=== PATIENT | male | born 1990 | race Two or more races ===

== ENCOUNTER 2020-02-05 11:32 | Outpatient (REF) | payer OTHER, SELFPAY | END 2020-02-05 11:33 | disposition home or self-care (01) | LOC: HO.LAB 11:32 | PROVIDERS: Visit Provider Internal Medicine | DX: Z20.828 Contact with and (suspected) exposure to other viral communicable diseases (principal) | CPT/HCPCS: 87635 ==

== ENCOUNTER 2020-03-20 11:20 | Outpatient (REF) | payer OTHER, SELFPAY | END 2020-03-20 11:21 | disposition home or self-care (01) | LOC: HO.LAB 11:20 | PROVIDERS: Visit Provider Internal Medicine | DX: Z20.828 Contact with and (suspected) exposure to other viral communicable diseases (principal) | CPT/HCPCS: C9803; U0003 ==

== ENCOUNTER 2020-04-19 11:29 | Emergency (ER) | payer OTHER, SELFPAY ==
[2020-04-19 11:33] VITALS: BP 144/89; PULSE 81; RESP 18; TEMP 37.1; O2SAT 96; BMI 35.5
--- NOTE | 2020-04-19 12:46 | ED.GENADULT ---
HPI - General Adult General Chief complaint: Upper Respiratory Symptoms Stated complaint: sore throat Time Seen by Provider: 04/19/20 12:30 Source: patient Mode of arrival: ambulatory Limitations: no limitations History of Present Illness HPI narrative: Patient comes emergency room complaining of sore throat and difficulty swallowing. Patient states it started today. Patient denies shortness of breath, no headaches, no other upper respiratory symptoms. MD complaint: Sore throat Related Data Allergies Allergy/AdvReac Type Severity Reaction Status Date / Time Penicillins Allergy Severe HIVES Unverified 12/26/19 16:52 amoxicillin [AMOXICILLIN] Allergy Unknown ANAPHYLAXIS Unverified 12/26/19 16:52 Review of Systems Review of Systems: Constitutional : No Weight loss, No Fever, No Chills, No Night Sweats, No Fatigue, No Malaise ENT/Mouth : No Hearing loss, No Ear Pain, No Nasal Congestion, No Sinus Pain, No Hoarseness, complaining of sore throat and mild difficulty swallowing No Rhinorrhea Eyes: No Eye Pain, No Swelling, No Redness, No Foreign Body, No Discharge, No Vision Changes Cardiovascular : No Chest Pain, No SOB, No Dyspnea on Exertion, No Orthopnea, No Edema, No Palpitations Respiratory : No Cough, No Sputum, No Wheezing, No Smoke Exposure, No Dyspnea Gastrointestinal : No Nausea, No Vomiting, No Diarrhea, No Constipation, No abdominal Pain, No Hematochezia, No Melena Genitourinary : no irregular bleeding, No Dysuria, No Urinary Frequency, No Hematuria, No Urinary Incontinence, No Urgency, No Flank Pain, No Urinary Flow Changes, No Hesitancy Musculoskeletal : No joint pain, No Myalgias, No Joint Swelling Skin : No Skin Lesions, No rash Neuro : No Weakness, No Numbness, No Paresthesias, No Loss of Consciousness, No Dizziness, No Headache Psych : No Anxiety/Panic, No Depression, No SI/HI/AH/VH, No Social Issues, Heme/Lymph: No Bruising, No Bleeding,No Lymphadenopathy Endocrine : No Polyuria, No Polydipsia, No Temperature Intolerance [facility] Past Medical History Medical History No known health problems Social History Social History Advance Directives: No Advance Directives Information Provided: No Physical Exam Vital Signs: Vital Signs: Last Vital Signs Temp 97.4 F 04/19/20 14:00 Pulse 85 04/19/20 14:00 Resp 22 H 04/19/20 14:00 BP 144/68 H 04/19/20 14:00 Pulse Ox 95 04/19/20 14:00 Body Mass Index 35.5 Appearance: Alert. Oriented X3. No acute distress. Eyes: Pupils equal, round and reactive to light. ENT: Pharynx erythematous, uvula is mildly erythematous and mildly swollen, tonsils are also erythematous, but no exudates. Patient controlling his secretions, able to swallow, no respiratory distress, no tripodding Neck: Normal inspection. Neck supple. No lymph nodes noted. No crepitus CVS: Normal heart rate and rhythm. Pulses normal. Normal S1 and S2 Respiratory: No respiratory distress. Breath sounds normal. No Wheezing. No rales Abdomen: Soft and nontender. No rigidity. No distention. good BS x4 Skin: Skin warm and dry. Normal skin color. Normal skin turgor. Extremities: No lower extremity edema. No lower extremity edema. No Lacerations. No Rash Neuro: Oriented X 3. No motor deficit. No sensory deficit. Moving all extermities. No slurred speech. Course Course Course Narrative: Patient states that he is known to be allergic to penicillins, denies using any antibiotics lately. At this time, given that the patient's uvula is swollen, we will test him for strep and COVID, however he will be treated as an allergic reaction, patient will be constantly re-evaluated. Patient is stable, no shortness of breath, no wheezing, no rash that may indicate anaphylaxis I discussed the labs and imaging with the patient, it is unlikely the patient has epiglottitis. Patient is stable to speak in full sentences, controlling his own secretions, respiratory rate within normal limits, at this time he feels that his throat feels better, less irritated. Soft tissue neck x-ray did not appreciate thickening of the epiglottis. Rapid strep is negative, COVID-19 is negative. I discussed with the patient that the cultures are pending, if they are positive, he will receive a phone call to inform him and antibiotics would be sent to his pharmacy. At this time, antibiotics are not indicated Medical Decision Making Lab Data Result diagrams: 04/19/20 13:03 04/19/20 15:09 Labs: Lab Results 04/19/20 04/19/20 04/19/20 Range/Units 12:57 13:03 13:03 WBC 7.1 (4.8-10.8) X10*3/uL RBC 5.30 (4.60-5.80) X10*6/uL Hgb 16.1 (14.0-18.0) g/dl Hct 48.3 (42-52) % MCV 91.1 (80-98) fL MCH 30.4 (27.0-33.0) pg MCHC 33.3 (31.0-36.0) g/dl RDW 12.4 (11.0-16.0) % Plt Count 241 (160-400) X10*3/uL MPV 11.0 (9.4-12.4) fL Immature Gran % (Auto) 0.7 H (0.0-0.4) % Neut % (Auto) 55.2 (45-73) % Lymph % (Auto) 33.4 (20-40) % [place] % (Auto) 6.9 (2-11) % Eos % (Auto) 3.2 (0-4) % Baso % (Auto) 0.6 (0-2) % Lymph # (Auto) 2.4 (1.2-4.9) X10*3/uL [place] # (Auto) 0.5 (0.1-1.2) X10*3/uL Eos # (Auto) 0.2 (0.0-0.4) X10*3/uL Baso # (Auto) 0.0 (0.0-0.2) X10*3/uL Abs Immat Gran (auto) 0.05 H (0.00-0.03) X10*3/uL Absolute Neuts (auto) 3.9 (2.0-8.3) X10*3/uL Absolute Nucleated RBC 0.000 (0.0-0.012) X10*3/uL Nucleated RBC % (auto) 0.0 (0.0-0.2) /100WBC Sodium Cancelled Potassium Cancelled Chloride Cancelled Carbon Dioxide Cancelled Anion Gap Cancelled BUN Cancelled Creatinine Cancelled Estim Creat Clear Calc Cancelled Estimated GFR Cancelled Random Glucose Cancelled Calcium Cancelled Coronavirus (PCR) NEGATIVE (Negative) Influenza Type A (PCR) NEGATIVE (Negative) Influenza Type B (PCR) NEGATIVE (Negative) RSV RNA Qual (PCR) NEGATIVE (Negative) 04/19/20 04/19/20 Range/Units 14:37 15:09 WBC (4.8-10.8) X10*3/uL RBC (4.60-5.80) X10*6/uL Hgb (14.0-18.0) g/dl Hct (42-52) % MCV (80-98) fL MCH (27.0-33.0) pg MCHC (31.0-36.0) g/dl RDW (11.0-16.0) % Plt Count (160-400) X10*3/uL MPV (9.4-12.4) fL Immature Gran % (Auto) (0.0-0.4) % Neut % (Auto) (45-73) % Lymph % (Auto) (20-40) % [place] % (Auto) (2-11) % Eos % (Auto) (0-4) % Baso % (Auto) (0-2) % Lymph # (Auto) (1.2-4.9) X10*3/uL [place] # (Auto) (0.1-1.2) X10*3/uL Eos # (Auto) (0.0-0.4) X10*3/uL Baso # (Auto) (0.0-0.2) X10*3/uL Abs Immat Gran (auto) (0.00-0.03) X10*3/uL Absolute Neuts (auto) (2.0-8.3) X10*3/uL Absolute Nucleated RBC (0.0-0.012) X10*3/uL Nucleated RBC % (auto) (0.0-0.2) /100WBC Sodium Cancelled 141 Potassium Cancelled 4.8 Chloride Cancelled 106 Carbon Dioxide Cancelled 26 Anion Gap Cancelled 14 BUN Cancelled 8 L Creatinine Cancelled 1.03 Estim Creat Clear Calc Cancelled 115.9 Estimated GFR Cancelled > 60 Random Glucose Cancelled 97 Calcium Cancelled 8.9 Coronavirus (PCR) (Negative) Influenza Type A (PCR) (Negative) Influenza Type B (PCR) (Negative) RSV RNA Qual (PCR) (Negative) Imaging Data Neck soft tissue: Radiologist's impression: The lateral soft tissue neck is limited by the head position in phase of respiration. There is soft tissue prominence at the base of the tongue which may reflect enlargement of the palatine tonsils. The epiglottis is not well evaluated on this study but no obvious epiglottic enlargement is seen. 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 XR/XR soft tissue neck IMPRESSION: Limited exam. Possible enlargement of the palatine tonsils. The epiglottis is not appreciably thickened. Discharge Plan Discharge Clinical Impression: Acute viral pharyngitis Patient Disposition: Home, Self-Care Instructions: Pharyngitis (ED) Additional Instructions: Please follow-up with your primary care physician tomorrow. If you have any worsening or new symptoms, please return to the emergency room or call 911
[2020-04-19 13:10] LABS: MANUAL DIFF FLAG NO
[2020-04-19 13:20] LABS: Basophils Percent Auto 0.6 % (0-2); Eosinophils Absolute Auto 0.2 X10*3/uL (0.0-0.4); Eosinophils Percent Auto 3.2 % (0-4); Hematocrit 48.3 % (42-52); Hemoglobin 16.1 g/dl (14.0-18.0); Imm Gran Abs Auto 0.05 X10*3/uL (0.00-0.03); Imm Gran Pct Auto 0.7 % (0.0-0.4); Lymphocytes Absolute Auto 2.4 X10*3/uL (1.2-4.9); Lymphocytes Percent Auto 33.4 % (20-40); Mean Corpuscular HGB Conc 33.3 g/dl (31.0-36.0); Mean Corpuscular Hemoglobin 30.4 pg (27.0-33.0); Mean Corpuscular Volume 91.1 fL (80-98); Monocytes Absolute Auto 0.5 X10*3/uL (0.1-1.2); Monocytes Percent Auto 6.9 % (2-11); Neutrophils Absolute Auto 3.9 X10*3/uL (2.0-8.3); Neutrophils Percent Auto 55.2 % (45-73); Platelet Count 241 X10*3/uL (160-400); Red Cell Distribution Width 12.4 % (11.0-16.0); White Blood Count 7.1 X10*3/uL (4.8-10.8)
[2020-04-19] MEDS: diphenhydrAMINE HCL 50 MG/ML VIAL IVPUSH (13:21)
[2020-04-19] MEDS: Famotidine/PF 20 MG/2 ML VIAL IVPUSH (13:21)
[2020-04-19] MEDS: methylPREDNISolone Sod Succ/PF 125 MG/2 ML VIAL IVPUSH (13:21)
--- NOTE | 2020-04-19 13:45 | XR_ITS ---
EXAMINATION: XR SOFT TISSUE NECK CLINICAL INDICATION: Low suspicion for epiglottitis COMPARISON: Ct neck 11/22/2014 TECHNIQUE: Lateral soft tissue neck obtained. FINDINGS: The lateral soft tissue neck is limited by the head position in phase of respiration. There is soft tissue prominence at the base of the tongue which may reflect enlargement of the palatine tonsils. The epiglottis is not well evaluated on this study but no obvious epiglottic enlargement is seen. 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 XR/XR soft tissue neck IMPRESSION: Limited exam. Possible enlargement of the palatine tonsils. The epiglottis is not appreciably thickened.
[2020-04-19 14:00] VITALS: BP 144/68; PULSE 85; RESP 22; TEMP 36.3; O2SAT 95
[2020-04-19 14:09] LABS: Influenza A PCR NEGATIVE (Negative); Influenza B PCR NEGATIVE (Negative); Resp Syncy Virus RNA Qual PCR NEGATIVE (Negative); SARS COV2 PCR INHOUSE NEGATIVE (Negative)
[2020-04-19 15:38] LABS: Anion Gap 14 (12-20); Blood Urea Nitrogen 8 mg/dL (9-16); Calcium 8.9 mg/dL (8.4-10.2); Carbon Dioxide 26 mmol/L (22-29); Chloride 106 mmol/L (96-108); Creatinine Clr Calc Pharmacy 115.9; Estimated Glomerular Filt Rate > 60; Glucose Random 97 mg/dL (60-115); Potassium 4.8 mmol/l (3.3-5.1); Sodium 141 mmol/L (135-145)
== END 2020-04-19 17:33 | disposition home or self-care (01) ==
PROVIDERS: Emergency Provider Emergency Medicine
DX: J02.8 Acute pharyngitis due to other specified organisms (principal); Z20.828 Contact with and (suspected) exposure to other viral communicable diseases
CPT/HCPCS: 0241U; 36415; 70360; 80048; 85025; 87071; 87880; 96374; 96375; 99284; J1200; J2930

== ENCOUNTER 2020-07-20 13:41 | Outpatient (REF) | payer OTHER, SELFPAY ==
[2020-07-20 14:54] LABS: COVID-19 Test Positive (Negative); IDNOW Serial# 55D5AD1C
== END 2020-07-20 13:42 | disposition home or self-care (01) ==
LOC: HO.LAB 13:41
PROVIDERS: Visit Provider Internal Medicine
DX: Z20.822 Contact with and (suspected) exposure to COVID-19 (principal)
CPT/HCPCS: 36415; 87635; C9803

== ENCOUNTER 2021-02-14 16:07 | Emergency (ER) | payer OTHER, SELFPAY ==
[2021-02-14 16:17] VITALS: BP 177/85; PULSE 106; RESP 16; TEMP 37.5; O2SAT 97
[2021-02-14 16:38] LABS: IDNOW Serial# 9DD0AD1C; Strep A Nucleic Acid Positive (Negative)
--- NOTE | 2021-02-14 16:44 | ED_ITS ---
HPI - URI/Sore Throat General Chief Complaint: Upper Respiratory Symptoms Stated Complaint: Sore throat/body aches Time Seen by Provider: 02/14/21 16:36 Source: patient Mode of arrival: ambulatory Limitations: no limitations History of Present Illness HPI Narrative: 30-year-old male with past medical history of COVID presents to ED for body aches, bilateral ear pain, headache, and sore throat since yesterday. Patient denies any chest pain, shortness of breath, or coughing. Patient states not vaccinated against COVID. Patient states no one else at home or work have similar symptoms. Related Data Previous Rx's Medication Instructions Recorded cephalexin 500 mg capsule 500 mg PO QID 7 Days #28 cap 02/14/21 naproxen 500 mg tablet 500 mg PO BID PRN #20 tab 02/14/21 Allergies Allergy/AdvReac Type Severity Reaction Status Date / Time Penicillins Allergy Severe HIVES Verified 02/14/21 16:16 amoxicillin [AMOXICILLIN] Allergy Unknown ANAPHYLAXIS Verified 02/14/21 16:16 Review of Systems Review of Systems: Yes all other systems are reviewed and are negative Constitutional: Constitutional: Reports as per HPI, Reports no additional constitutional complaints, Reports body ache(s), Reports chills and Reports headache(s) Eyes: Eyes: Reports as per HPI and Reports no additional eye complaints ENT: Reports system reviewed and no additional complaints, except as documented, Reports as per HPI, Reports headache(s) and Reports sore throat Cardiovascular: Cardiovascular: Reports as per HPI and Reports no additional cardiovascular complaints Respiratory: Respiratory: Reports as per HPI and Reports no additional respiratory complaints Gastrointestinal: Gastrointestinal: Reports as per HPI and Reports no additional gastrointestinal complaints Genitourinary: Genitourinary: Reports no additional male genitourinary complaints and Reports as per HPI Musculoskeletal: Musculoskeletal: Reports no additional musculoskeletal complaints and Reports as per HPI Neurologic: Reports system reviewed and no additional complaints, except as documented, Reports as per HPI and Reports headache(s) Psychiatric: Psychiatric: Reports no additional psychiatric complaints and Reports as per HPI PMF Past Medical History Medical History No known health problems Social History Social History Alcohol intake: unknown Advance Directives: No Advance Directives Information Provided: No Physical Exam Vital Signs: Vital Signs: Last Vital Signs Temp 99.5 F 02/14/21 16:17 Pulse 106 H 02/14/21 16:17 Resp 16 02/14/21 16:17 BP 177/85 H 02/14/21 16:17 Pulse Ox 97 02/14/21 16:17 Body Mass Index 0.4 Const: General: cooperative, healthy appearing, comfortable, no acute distress, well developed, alert, awake and Physically active Orientati on/consciousness: patient oriented x3 HENMT: Head: Yes normal to inspection, Yes No palpable skull fracture present, Yes normocephalic, Yes atraumatic, No abrasion, No Acrocyanosis present, No Grant's sign, No contusion, No cranial bruits, No hematoma, No laceration, No occipital foramen tenderness, No palpable skull fracture, No raccoon eyes, No scalp lesion, No scalp tenderness, No Temporal artery tenderness present and No periorbital ecchymosis Ears: hearing grossly normal bilaterally and TM abnorm al (Right and left TM) erythematous Throat: Yes abnormal tonsil (white patchy on left tonsils) Eyes: General: appearance normal, both eyes and all related structures Neck: Neck: Yes normal visual inspection, Yes full ROM, Yes no lymphadenopathy, Yes no meningeal signs, Yes trachea midline, Yes supple, No anterior neck swelling and No tender Chest: Chest palpation & inspection: normal inspection of the chest and normal palpation of entire chest wall Resp: Effort & Inspection: normal respiratory effort and able to speak in complete sentences Auscultation: clear to auscultation bilaterally Cardio: Jugular venous distension: no JVD Heart sounds: S1 normal heart sound present and S2 normal heart sound present GI: Inspection: Yes normal to inspection and No abdominal wall ecchymosis Palpation (GI): Soft to palpation, not firm, nontender, no guarding and not rigid : General: No CVA tenderness and Yes no CVA tenderness Back/Spine/Pelvis: Back: no CVA tenderness, No CVA tenderness and No back tenderness Skin: General skin exam: no rashes or lesions noted and elasticity normal Neuro: General: patient oriented x3, gait normal, no meningeal signs and CN's II-XI intact bilaterally Cranial nerves: Yes CN's II-XII intact bilaterally Extrem: General: Yes normal to inspection and Yes full ROM Psych: Appearance: grossly normal, well kempt and not disheveled Course Course Course Narrative: COVID and strep ordered Reevaluation(s) Reevaluation #1: Strep test positive waiting for COVID swab Time: 17:05 MDM - URI/Sore Throat MDM Narrative Medical decision making narrative: Strep throat Lab Data Labs: Lab Results 02/14/21 02/14/21 Range/Units 16:25 16:25 COVID-19 (ELIDA) Negative (Negative) COVID-19 Clin Com See Note S. pyogenes GrpA LEENA Positive A (Negative) Discharge Plan Discharge Clinical Impression: Acute streptococcal tonsillitis Patient Disposition: Home, Self-Care Instructions: Strep Throat (ED) Additional Instructions: You came back positive for strep. You will be discharged with antibiotics. Return to the ED worsening pain, neck swelling, inability tolerate solid food/liquid, drooling, change in voice, shortness of breath, chest pain, or any other concerning symptoms. Prescriptions: New cephalexin 500 mg capsule 500 mg PO QID 7 Days Qty: 28 RF: 0 naproxen 500 mg tablet 500 mg PO BID PRN (Reason: pain) Qty: 20 RF: 0 Stand Alone Forms: Work/School Release Interventions: ED Discharge Assessment Last Done: 02/14/21 17:47 Discharge Date/Time: 02/14/21 18:02 Print Language: Sinhala
[2021-02-14 17:03] LABS: COVID-19 Test Negative (Negative)
== END 2021-02-14 18:02 | disposition home or self-care (01) ==
PROVIDERS: Emergency Provider Internal Medicine
DX: J03.00 Acute streptococcal tonsillitis, unspecified (principal); M79.10 Myalgia, unspecified site; Z20.822 Contact with and (suspected) exposure to COVID-19
CPT/HCPCS: 36415; 87635; 87651; 99283

== ENCOUNTER 2021-04-20 08:44 | Outpatient (REF) | payer OTHER, SELFPAY ==
[2021-04-20 09:37] LABS: Binax Now Covid-19 Ag Positive (Negative)
[2021-04-20 09:38] LABS: Binax Internal Control QC Valid
== END 2021-04-20 08:45 | disposition home or self-care (01) ==
LOC: HO.LAB 08:44
PROVIDERS: Visit Provider Internal Medicine
DX: Z20.822 Contact with and (suspected) exposure to COVID-19 (principal)
CPT/HCPCS: C9803

== ENCOUNTER 2021-12-28 19:24 | Emergency (ER) | payer SELFPAY ==
--- NOTE | ~2021-12-28 | US_ITS ---
EXAMINATION: US VENOUS ULTRASOUND WITH DOPPLER LOWER EXTREMITY, LEFT CLINICAL INFORMATION: Left lower extremity swelling. COMPARISON: None TECHNIQUE: Ultrasound of the deep veins is performed from the hip to the calf with compression sonography and color and pulse Doppler assessment. Spectral analysis with color-flow imaging is performed. FINDINGS: There is normal venous compression and respiratory variation and augmented flow. The visualized common femoral vein, superficial femoral vein, profunda femoral vein, popliteal vein, and the trifurcation region shows no evidence of deep venous thrombosis. There is no significant popliteal fossa cyst. If the patient's symptoms persist, followup ultrasound in 5 days 7 days might be of value to exclude proximal propagation from a non-visualized calf vein. US/US venous duplex LE LT IMPRESSION: No DVT demonstrated in the left lower extremity.
--- NOTE | ~2021-12-28 | XR_ITS ---
EXAMINATION: XR FOOT, LEFT CLINICAL INFORMATION: Left foot pain COMPARISON: None TECHNIQUE: AP, lateral, and oblique views of the left foot. FINDINGS: Mild soft tissue swelling in the foot. Small marginal osseous excrescences at the interphalangeal joints of the second toe and the DIP joints of the third toe could be due to prior trauma or early arthrosis. No erosions. No fracture. Alignment is anatomic. Joint spaces are maintained. Small enthesopathic spur is present at the Achilles tendon insertion on the calcaneus. XR/XR foot LT min 3V IMPRESSION: 1. Mild soft tissue swelling in the foot. No acute osseous abnormality. 2. Subtle osseous findings at the interphalangeal joints of the second and third toes at a correspond to chronic findings of prior trauma or early arthrosis.
[2021-12-28 19:39] VITALS: BP 152/99; PULSE 98; RESP 18; TEMP 36.7; O2SAT 98; BMI 38.7
[2021-12-28] MEDS: Acetaminophen Oral Liquid 650 MG/20.3 ML SOLUTION PO (19:44)
--- NOTE | 2021-12-28 22:43 | ED_ITS ---
HPI - General Adult General Chief complaint: Extremity Injury, Lower Stated complaint: swollen foot, pain Time Seen by Provider: 12/28/21 22:20 Source: patient Mode of arrival: ambulatory Limitations: no limitations History of Present Illness HPI narrative: 31 yold male presents to the ED for left foot swelling since this morning. patient woke up with the feet swelling. patient denies any recent trauma to the foot or animal bite. Patient denies any bluish/black discoloratino, calf pain, fever, chills, chest pain, or shortness of breath Related Data Previous Rx's Medication Instructions Recorded cephalexin 500 mg capsule 500 mg PO QID 7 days #28 caps 02/14/21 naproxen 500 mg tablet 500 mg PO BID PRN pain #20 tabs 02/14/21 cephalexin 500 mg capsule 500 mg PO QID 7 days #28 caps 12/29/21 clotrimazole 1 % topical cream 1 appl topical BID 2 weeks #45 12/29/21 grams naproxen 500 mg tablet 500 mg PO BID PRN pain 7 days #14 12/29/21 tabs prednisone 20 mg tablet 40 mg PO DAILY 5 days #10 tabs 12/29/21 Allergies Allergy/AdvReac Type Severity Reaction Status Date / Time amoxicillin [AMOXICILLIN] Allergy Severe ANAPHYLAXIS Verified 12/28/21 19:39 Penicillins Allergy Severe HIVES Verified 12/28/21 19:39 Review of Systems Review of Systems: LEft foot swelling. Yes all other systems are reviewed and are negative PMFSH Past Medical History Medical History No known health problems Social History Social History Alcohol intake: unknown Advance Directives: No Advance Directives Information Provided: No Physical Exam ED Vital Signs: Vital Signs - 24 hr 12/28/21 19:39 Temperature 98.1 F Pulse Rate 98 Respiratory Rate 18 Blood Pressure 152/99 H Pulse Oximetry 98 Oxygen Delivery Method Room Air BMI result Body Mass Index 38.7 Const General: cooperative, healthy appearing, comfortable, no acute distress, well developed, alert, awake and Physically active Orientation/consciousness: oriented to person, oriented to place, oriented to time and patient oriented x3 HENMT Head: Yes normal to inspection, Yes No palpable skull fracture present, Yes normocephalic, Yes atraumatic and No abrasion Eyes General: appearance normal, both eyes and all related structures Neck Neck: Yes normal visual inspection, Yes full ROM, Yes no lymphadenopathy, Yes no meningeal signs, Yes trachea midline, Yes supple, No anterior neck swelling and No tender Chest Chest palpation & inspection: normal inspection of the chest and normal palpation of entire chest wall Resp Effort & Inspection: normal respiratory effort and able to speak in complete sentences Auscultation: clear to auscultation bilaterally Cardio Jugular venous distension: no JVD Heart sounds: S1 normal heart sound present and S2 normal heart sound present GI Inspection: Yes normal to inspection Palpation (GI): Soft to palpation, not firm, nontender, no guarding and not rigid General: No CVA tenderness and Yes no CVA tenderness Back/Spine/Pelvis Back: no CVA tenderness, No CVA tenderness and No back tenderness Skin General skin exam: no rashes or lesions noted and elasticity normal Neuro General: oriented to person, oriented to place, oriented to time, patient oriented x3, tone normal, moves all extremities, no meningeal signs and CN's II- XI intact bilaterally Extrem General: Yes normal to inspection and Yes full ROM Ankle/foot/toe images: 1. Left foot swollen. negative for ecchymosis, crepitus, or deformities. Motor, neuro, and vascular exam is intact. Slgith erythema 2. positive for fungal rash in between toes. Psych Appearance: grossly normal, well kempt and not disheveled Course Course Course Narrative: Xray was ordered and negative for fracture. labs drawn and patient sent for ultrasound Reevaluation(s) Reevaluation #1: Labs are normal. Reevaluation #2: Ultrasound negative for DVT. patient has fungal infection. will discharge with fungal cream. May have super imposed cellultiis will discharge with antibiotics. Time: 00:56 Medical Decision Making [facility] Narrative Medical decision making narrative: Foot swelling. tinea pedis. cellulitis Lab Data Result diagrams: 12/28/21 22:49 12/28/21 22:49 Labs: Lab Results 12/28/21 12/28/21 12/28/21 Range/Units 22:49 22:49 22:49 WBC 9.1 (4.8-10.8) X10*3/uL RBC 4.92 (4.60-5.80) X10*6/uL Hgb 14.9 (14.0-18.0) g/dl Hct 43.9 (42.0-52.0) % MCV 89.2 (80.0-98.0) fL MCH 30.3 (27.0-33.0) pg MCHC 33.9 (31.0-36.0) g/dl RDW 12.2 (11.0-16.0) % Plt Count 217 (160-400) X10*3/uL MPV 10.6 (9.4-12.4) fL Immature Gran % (Auto) 0.3 (0.0-0.4) % Neut % (Auto) 62.4 (45-73) % Lymph % (Auto) 26.8 (20-40) % [place] % (Auto) 8.5 (2-11) % Eos % (Auto) 1.7 (0-4) % Baso % (Auto) 0.3 (0-2) % Lymph # (Auto) 2.4 (1.2-4.9) X10*3/uL [place] # (Auto) 0.8 (0.1-1.2) X10*3/uL Eos # (Auto) 0.2 (0.0-0.4) X10*3/uL Baso # (Auto) 0.0 (0.0-0.2) X10*3/uL Abs Immat Gran (auto) 0.03 (0.00-0.03) X10*3/uL Absolute Neuts (auto) 5.7 (2.0-8.3) x10*3/uL Absolute Nucleated RBC 0.000 (0.0-0.012) X10*3/uL Nucleated RBC % (auto) 0.0 (0.0-0.2) /100WBC ESR (0-15) MM/HR PT 10.2 (10.0-13.1) SEC INR 0.9 (0.9-1.1) APTT 32.2 (26.0-36.4) SEC Sodium 141 (135-145) mmol/L Potassium 4.2 (3.3-5.1) mmol/L Chloride 104 (96-108) mmol/L Carbon Dioxide 27 (22-29) mmol/L Anion Gap 14 (12-20) BUN 12 (9-16) mg/dL Creatinine 1.00 (0.5-1.4) mg/dL Estim Creat Clear Calc 122.7 Estimated GFR > 60 Random Glucose 85 (60-115) mg/dL Calcium 9.0 (8.4-10.2) mg/dL Total Bilirubin 0.5 (0.0-1.0) mg/dL AST 15 (5-37) U/L ALT 22 (0-40) U/L Alkaline Phosphatase 80 (39-117) U/L C-Reactive Protein 1.18 H (< or = 0.50) mg/dL Total Protein 7.2 (6.5-8.0) g/dL Albumin 4.1 (3.5-5.0) g/dL 12/28/21 Range/Units 22:49 WBC (4.8-10.8) X10*3/uL RBC (4.60-5.80) X10*6/uL Hgb (14.0-18.0) g/dl Hct (42.0-52.0) % MCV (80.0-98.0) fL MCH (27.0-33.0) pg MCHC (31.0-36.0) g/dl RDW (11.0-16.0) % Plt Count (160-400) X10*3/uL MPV (9.4-12.4) fL Immature Gran % (Auto) (0.0-0.4) % Neut % (Auto) (45-73) % Lymph % (Auto) (20-40) % [place] % (Auto) (2-11) % Eos % (Auto) (0-4) % Baso % (Auto) (0-2) % Lymph # (Auto) (1.2-4.9) X10*3/uL [place] # (Auto) (0.1-1.2) X10*3/uL Eos # (Auto) (0.0-0.4) X10*3/uL Baso # (Auto) (0.0-0.2) X10*3/uL Abs Immat Gran (auto) (0.00-0.03) X10*3/uL Absolute Neuts (auto) (2.0-8.3) x10*3/uL Absolute Nucleated RBC (0.0-0.012) X10*3/uL Nucleated RBC % (auto) (0.0-0.2) /100WBC ESR 8 (0-15) MM/HR PT (10.0-13.1) SEC INR (0.9-1.1) APTT (26.0-36.4) SEC Sodium (135-145) mmol/L Potassium (3.3-5.1) mmol/L Chloride (96-108) mmol/L Carbon Dioxide (22-29) mmol/L Anion Gap (12-20) BUN (9-16) mg/dL Creatinine (0.5-1.4) mg/dL Estim Creat Clear Calc Estimated GFR Random Glucose (60-115) mg/dL Calcium (8.4-10.2) mg/dL Total Bilirubin (0.0-1.0) mg/dL AST (5-37) U/L ALT (0-40) U/L Alkaline Phosphatase (39-117) U/L C-Reactive Protein (< or = 0.50) mg/dL Total Protein (6.5-8.0) g/dL Albumin (3.5-5.0) g/dL Discharge Plan Discharge Clinical Impression: Localized swelling of left foot, Tinea pedis, Cellulitis Patient Disposition: Home, Self-Care Instructions: Athlete's Foot (ED), Cellulitis (ED), Leg Edema (ED) Additional Instructions: Your labs, xray, and ultrasound came back negative for fracture, bone infection, DVT, or Sepsis. You will be discharged with antifungal rash, antibiotics, and NSAiDS. Return to the ED immediatley for any worsening redness, red streaks, worsening foot swelling, leg swelling, calf pain, chest pain, shortness of breath, fevere, chills, rash, or any other concerning symptoms. Plesae follow up with PCP. Elevate extremity. Prescriptions: New clotrimazole 1 % cream 1 appl topical BID 14 Days Qty: 45 0RF cephalexin 500 mg capsule 500 mg PO QID 7 Days Qty: 28 0RF naproxen 500 mg tablet 500 mg PO BID PRN (Reason: pain) 7 Days Qty: 14 0RF prednisone 20 mg tablet 40 mg PO DAILY 5 Days Qty: 10 0RF No Action cephalexin 500 mg capsule 500 mg PO QID 7 Days Qty: 28 0RF naproxen 500 mg tablet 500 mg PO BID PRN (Reason: pain) Qty: 20 0RF Stand Alone Forms: Work/School Release Interventions: ED Discharge Assessment Last Done: 12/29/21 01:29 Discharge Date/Time: 12/29/21 01:30 Print Language: [place] Rican
[2021-12-28 22:55] LABS: MANUAL DIFF FLAG NO
[2021-12-28 22:57] LABS: Basophils Percent Auto 0.3 % (0-2); Eosinophils Absolute Auto 0.2 X10*3/uL (0.0-0.4); Eosinophils Percent Auto 1.7 % (0-4); Hematocrit 43.9 % (42.0-52.0); Hemoglobin 14.9 g/dl (14.0-18.0); Imm Gran Abs Auto 0.03 X10*3/uL (0.00-0.03); Imm Gran Pct Auto 0.3 % (0.0-0.4); Lymphocytes Absolute Auto 2.4 X10*3/uL (1.2-4.9); Lymphocytes Percent Auto 26.8 % (20-40); Mean Corpuscular HGB Conc 33.9 g/dl (31.0-36.0); Mean Corpuscular Hemoglobin 30.3 pg (27.0-33.0); Mean Corpuscular Volume 89.2 fL (80.0-98.0); Mean Platelet Volume 10.6 fL (9.4-12.4); Monocytes Absolute Auto 0.8 X10*3/uL (0.1-1.2); Monocytes Percent Auto 8.5 % (2-11); Neutrophils Absolute Auto 5.7 x10*3/uL (2.0-8.3); Neutrophils Percent Auto 62.4 % (45-73); Platelet Count 217 X10*3/uL (160-400); Red Blood Count 4.92 X10*6/uL (4.60-5.80); Red Cell Distribution Width 12.2 % (11.0-16.0); White Blood Count 9.1 X10*3/uL (4.8-10.8)
[2021-12-28 23:02] LABS: INTERNATIONAL NORM RATIO 0.9 (0.9-1.1); Prothrombin Time 10.2 SEC (10.0-13.1)
[2021-12-28 23:05] LABS: Partial Thromboplastin Time 32.2 SEC (26.0-36.4)
[2021-12-28 23:14] LABS: Alanine Aminotransferase 22 U/L (0-40); Albumin Level 4.1 g/dL (3.5-5.0); Alkaline Phosphatase 80 U/L (39-117); Anion Gap 14 (12-20); Aspartate Amino Transferase 15 U/L (5-37); Bilirubin Total 0.5 mg/dL (0.0-1.0); Blood Urea Nitrogen 12 mg/dL (9-16); C Reactive Protein 1.18 mg/dL (< or = 0.50); Carbon Dioxide 27 mmol/L (22-29); Chloride 104 mmol/L (96-108); Creatinine Clr Calc Pharmacy 122.7; Estimated Glomerular Filt Rate > 60; Glucose Random 85 mg/dL (60-115); Potassium 4.2 mmol/L (3.3-5.1); Sodium 141 mmol/L (135-145); Total Protein 7.2 g/dL (6.5-8.0)
[2021-12-28 23:50] LABS: Erythrocyte Sedimentation Rate 8 MM/HR (0-15)
== END 2021-12-29 01:30 | disposition home or self-care (01) ==
PROVIDERS: Physician Assistant; Emergency Provider Emergency Medicine
DX: R60.0 Localized edema (principal); B35.3 Tinea pedis; L03.116 Cellulitis of left lower limb; Z79.899 Other long term (current) drug therapy
CPT/HCPCS: 36415; 73630; 80053; 85025; 85610; 85652; 85730; 86140; 93971; 99283; 99284

== ENCOUNTER 2022-03-28 04:59 | Emergency (ER) | payer SELFPAY ==
[2022-03-28 05:05] VITALS: BP 155/107; PULSE 82; RESP 17; TEMP 36.6; O2SAT 98; BMI 40.3
[2022-03-28 05:40] VITALS: BP 124/84; PULSE 70; RESP 16; TEMP 36.4; O2SAT 98
[2022-03-28 05:49] LABS: Influenza A PCR POSITIVE (Negative); Influenza B PCR NEGATIVE (Negative); Resp Syncy Virus RNA Qual PCR NEGATIVE (Negative); SARS COV2 PCR INHOUSE NEGATIVE (Negative)
--- NOTE | 2022-03-28 06:40 | ED.URI ---
HPI - URI/Sore Throat General Chief Complaint: Upper Respiratory Symptoms Stated Complaint: fever, headache, cp Time Seen by Provider: 03/28/22 05:34 Source: patient Mode of arrival: ambulatory History of Present Illness HPI Narrative: 31-year-old male who presents with his son with complaints congestion, headache, cough as well as subjective fevers since Monday. Patient then states he lost his taste and smell. Related Data Previous Rx's Medication Instructions Recorded cephalexin 500 mg capsule 500 mg PO QID 7 days #28 caps 02/14/21 naproxen 500 mg tablet 500 mg PO BID PRN pain #20 tabs 02/14/21 cephalexin 500 mg capsule 500 mg PO QID 7 days #28 caps 12/29/21 clotrimazole 1 % topical cream 1 appl topical BID 2 weeks #45 12/29/21 grams naproxen 500 mg tablet 500 mg PO BID PRN pain 7 days #14 12/29/21 tabs prednisone 20 mg tablet 40 mg PO DAILY 5 days #10 tabs 12/29/21 oseltamivir 75 mg capsule (Tamiflu) 75 mg PO Q12H 5 days #10 caps 03/28/22 Allergies Allergy/AdvReac Type Severity Reaction Status Date / Time amoxicillin [AMOXICILLIN] Allergy Severe ANAPHYLAXIS Verified 03/28/22 05:05 Penicillins Allergy Severe HIVES Verified 03/28/22 05:05 Review of Systems Review of Systems: Pertinent positives and negatives as stated in HPI 10 point review of systems is otherwise negative. PMFSH Past Medical History Source: nursing notes reviewed Medical History No known health problems Social History Social History Alcohol intake: unknown Advance Directives: No Advance Directives Information Provided: No Physical Exam Vital Signs: Vital Signs: Last Vital Signs Temp 97.5 F 03/28/22 05:40 Pulse 70 03/28/22 05:40 Resp 16 03/28/22 05:40 BP 124/84 03/28/22 05:40 Pulse Ox 98 03/28/22 05:40 O2 Del Method 03/28/22 05:40 BMI result Body Mass Index 40.3 VITAL SIGNS: Reviewed. GENERAL: Well developed, well nourished, in no acute distress. HEAD: Normocephalic/atraumatic EYES: PERRLA, EOMI EARS: Ext canals without abnormality, TMs non-bulging and non-erythematous NOSE: Nares patent bilateral OROPHARYNX: no oral lesions noted, posterior pharynx clear and non-erythematous without noted tonsillar enlargement/erythema/exudates NECK: Supple, no adenopathy LUNGS: Normal breath sounds. No adventitious sounds or accessory muscle use. SpO2<98> CARDIOVASCULAR: Regular rate and rhythm without noted murmurs ABDOMEN: Soft, non-tender, non-distended with bowel sounds. MUSCULOSKELETAL: No tenderness, deformities, or effusions noted on gross inspection. EXTREMITIES: No cyanosis, clubbing or edema. SKIN: Inspection of the skin reveals no rashes NEUROLOGIC: Alert and oriented x 4. Strength and sensation to light touch were grossly intact x 4. Course Course Course Narrative: 31-year-old male with history and clinical presentation consistent with viral syndrome and on review of viral testing patient is noted be influenza A positive. He will be discharged home with Tamiflu and instructions to stay hydrated and take Tylenol and ibuprofen as needed for fevers. Medical Decision Making Lab Data Labs: Lab Results 03/28/22 Range/Units 05:08 Influenza Type A (PCR) POSITIVE A (Negative) Influenza Type B (PCR) NEGATIVE (Negative) RSV RNA Qual (PCR) NEGATIVE (Negative) SARS-CoV-2 RNA (RT-PCR) NEGATIVE (Negative) Discharge Plan Discharge Clinical Impression: Viral syndrome, Influenza A Patient Disposition: Home, Self-Care Instructions: Influenza (ED), Viral Syndrome (ED) Additional Instructions: 1. Resume all home medications as prescribed. 2. Stay well hydrated and recommend Tylenol/ibuprofen as needed for all headaches, body aches, sore throat and temperatures greater than 100.4. 3. Follow-up with primary care provider in the next 2-3 days. Return to the ER for worsening symptoms. Prescriptions: New oseltamivir [Tamiflu] 75 mg capsule 75 mg PO Q12H 5 Days Qty: 10 0RF No Action clotrimazole 1 % cream 1 appl topical BID 14 Days Qty: 45 0RF cephalexin 500 mg capsule 500 mg PO QID 7 Days Qty: 28 0RF naproxen 500 mg tablet 500 mg PO BID PRN (Reason: pain) 7 Days Qty: 14 0RF prednisone 20 mg tablet 40 mg PO DAILY 5 Days Qty: 10 0RF cephalexin 500 mg capsule 500 mg PO QID 7 Days Qty: 28 0RF naproxen 500 mg tablet 500 mg PO BID PRN (Reason: pain) Qty: 20 0RF
[2022-03-28] MEDS: Acetaminophen 325 MG TABLET 975 MG PO (07:09)
[2022-03-28] MEDS: Ibuprofen 400 MG TABLET PO (07:09)
--- NOTE | 2022-03-28 08:27 | PC.NURSE ---
patient a/ox4 . went over discharge instructions as ordered by provider . patient follow up with primary care . patient to return to Ed if symptoms worsen . no questions at this time .
== END 2022-03-28 08:28 | disposition home or self-care (01) ==
PROVIDERS: Emergency Provider Student in an Organized Health Care Education/Training Program
DX: R50.9 Fever, unspecified (principal); R05.9 Cough, unspecified; Z20.822 Contact with and (suspected) exposure to COVID-19; Z79.899 Other long term (current) drug therapy
CPT/HCPCS: 0241U; 99283

== ENCOUNTER 2023-03-17 21:36 | Emergency (ER) | payer SELFPAY ==
--- NOTE | ~2023-03-17 | XR_ITS ---
EXAMINATION:XR foot RT min 3V, XR ankle RT min 3V VIEWS ACQUIRED: Frontal lateral and oblique right foot, frontal and lateral ankle. CLINICAL INFORMATION: Reason for Exam pain/swelling COMPARISON: None available at the time of this dictation. FINDINGS: There is marginal erosion of the head of the first metatarsal along the medial aspect which could be sequela of underlying erosive arthritis. The head of the second through fifth metatarsal otherwise intact. There is no evidence of acute fracture or dislocation. Intertarsal, tarsometatarsal, metatarsophalangeal and interphalangeal joints are intact. Surrounding soft tissues is normal. , Ankle mortise is preserved. Talar dome is intact. XR/XR ankle RT min 3V IMPRESSION: * Marginal erosion of the head of the first metatarsal concerning for possible underlying erosive arthritis. Please correlate with patient's laboratory data consider x-rays of the hand and other joints. Correlation with laboratory sedimentation rate. * No fracture.
--- NOTE | ~2023-03-17 | XR_ITS ---
EXAMINATION: XR CALCANEUS, RIGHT CLINICAL INFORMATION: Heel pain. Fall. COMPARISON: None available. TECHNIQUE: Lateral and axial views of the right calcaneus were obtained. FINDINGS: The bones and soft tissues are normal. No fracture. Alignment is anatomic. Joint spaces are maintained. No enthesopathic spurs are evident at the calcaneus. XR/XR calcaneus RT min 2V IMPRESSION: Normal right calcaneus.
--- NOTE | ~2023-03-17 | XR_ITS ---
EXAMINATION:XR foot RT min 3V, XR ankle RT min 3V VIEWS ACQUIRED: Frontal lateral and oblique right foot, frontal and lateral ankle. CLINICAL INFORMATION: Reason for Exam pain/swelling COMPARISON: None available at the time of this dictation. FINDINGS: There is marginal erosion of the head of the first metatarsal along the medial aspect which could be sequela of underlying erosive arthritis. The head of the second through fifth metatarsal otherwise intact. There is no evidence of acute fracture or dislocation. Intertarsal, tarsometatarsal, metatarsophalangeal and interphalangeal joints are intact. Surrounding soft tissues is normal. , Ankle mortise is preserved. Talar dome is intact. XR/XR foot RT min 3V IMPRESSION: * Marginal erosion of the head of the first metatarsal concerning for possible underlying erosive arthritis. Please correlate with patient's laboratory data consider x-rays of the hand and other joints. Correlation with laboratory sedimentation rate. * No fracture.
--- NOTE | ~2023-03-17 | US_ITS ---
EXAMINATION: US VENOUS ULTRASOUND WITH DOPPLER LOWER EXTREMITY, RIGHT CLINICAL INFORMATION: Right calf pain. COMPARISON: None available. TECHNIQUE: Ultrasound of the deep veins is performed from the hip to the calf with compression sonography and color and pulse Doppler assessment. Spectral analysis with color-flow imaging is performed. FINDINGS: There is normal venous compression and respiratory variation and augmented flow. The visualized common femoral vein, superficial femoral vein, profunda femoral vein, popliteal vein, and the trifurcation region shows no evidence of deep venous thrombosis. There is no significant popliteal fossa cyst. If the patient's symptoms persist, followup ultrasound in 5 days 7 days might be of value to exclude proximal propagation from a non-visualized calf vein. US/US venous duplex LE RT IMPRESSION: No DVT demonstrated in the right lower extremity.
[2023-03-17 21:57] VITALS: BP 173/105; PULSE 96; RESP 18; TEMP 37; O2SAT 97; BMI 46.8
--- NOTE | 2023-03-18 01:01 | ED.LOWEXIN ---
HPI - Extremity Injury (Lower) General Chief Complaint: Extremity Injury, Lower Stated Complaint: RT ankle pain radiating to knee Time Seen by Provider: 03/17/23 23:24 Source: patient and RN notes reviewed Mode of arrival: ambulatory Limitations: no limitations History of Present Illness HPI Narrative: This is a 32-year-old male presenting to the emergency department with complaints of right foot, ankle, heel, and calf pain for the last 10 days. Patient states that he woke up and felt pain in his right ankle. He states that he then continued to walk around and he states that he jumped up for a lap while playing basketball and landed onto his right foot causing him to have significant pain. He states that since this injury stool due to go he had difficulty with weight.. He states pain worsens with range of motion ambulation. Denies taking any medications at home to treat his current symptoms. No recent trauma, surgeries, hospitalizations, blood clots. He smokes cigarettes occasionally. No fevers or chills. No other complaints or concerns at this time. MD complaint: ankle injury and foot injury Onset (ago): day(s) Type of Injury: blunt Place: street/outdoors Severity: moderate Relieving factors: nothing Exacerbating factors: weight bearing, movement and palpation Context: fall Associated symptoms: swelling Other symptoms: none Related Data Previous Rx's Medication Instructions Recorded cephalexin 500 mg capsule 500 mg PO QID 7 days #28 caps 02/14/21 naproxen 500 mg tablet 500 mg PO BID PRN pain #20 tabs 02/14/21 cephalexin 500 mg capsule 500 mg PO QID 7 days #28 caps 12/29/21 clotrimazole 1 % topical cream 1 appl topical BID 2 weeks #45 12/29/21 grams naproxen 500 mg tablet 500 mg PO BID PRN pain 7 days #14 12/29/21 tabs prednisone 20 mg tablet 40 mg (2 x 20 mg) PO DAILY 5 days 12/29/21 #10 tabs oseltamivir 75 mg capsule (Tamiflu) 75 mg PO Q12H 5 days #10 caps 03/28/22 ibuprofen 600 mg tablet 600 mg PO Q6H PRN pain #30 tabs 03/18/23 Allergies Allergy/AdvReac Type Severity Reaction Status Date / Time amoxicillin [AMOXICILLIN] Allergy Severe ANAPHYLAXIS Verified 03/17/23 21:57 Penicillins Allergy Severe HIVES Verified 03/17/23 21:57 Review of Systems Review of Systems: Yes all other systems are reviewed and are negative [facility] Past Medical History Attestation statement: The following information was validated with the patient. Medical History No known health problems Social History Social History Alcohol intake: unknown Advance Directives: No Advance Directives Information Provided: Yes Physical Exam Vital Signs: Vital Signs: Last Vital Signs Temp 98.6 F 03/17/23 21:57 Pulse 96 03/17/23 21:57 Resp 18 03/17/23 21:57 BP 173/105 H 03/17/23 21:57 Pulse Ox 97 03/17/23 21:57 O2 Del Method Room Air 03/17/23 21:57 BMI result Body Mass Index 46.8 Const: Other: General: Awake, alert, and oriented X3. No acute distress. HEENT: Normal inspection CVS: Normal heart rate and rhythm. Pulses normal. Respiratory: No respiratory distress Skin: Warm, dry, no rashes noted to exposed skin. Normal skin color. Normal skin turgor. Extremities: Right ankle with tenderness palpation along the medial and lateral malleolus. Tenderness palpation along the right heel. Diffuse ecchymosis noted to the right conner, nontender. Decreased range of motion of the right ankle secondary to pain. Strong 2+ DP pulse. Extremities well perfused. Tenderness palpation along the right calf. Achilles intact. Neuro: Oriented X 3. No motor deficit. No sensory deficit. 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 Patient is non tender at this area, no overlying erythema or warmth. Discussed findings with patient. Also given referral to Rheumatology. Patient given crutches and Clifton wrap. Given orthopedic referral. Given return precautions. Patient understands and agrees with plan. Patient stable for discharge Medications Administered Discontinued Medications Generic Name Dose Route Start Last Admin Trade Name Freq PRN Reason Stop Dose Admin Ibuprofen 600 mg 03/18/23 01:40 03/18/23 01:53 Ibuprofen 600 Mg Tablet PO 03/18/23 01:41 600 mg ONCE ONE Administration Medical Decision Making Medical Decision Making MDM Narrative: 32-year-old male presenting to the emergency department for evaluation of right calf, ankle, foot, and heel pain for the last 10 days. On arrival, pressure mildly elevated 173/105 likely due to pain. X-ray of the right foot, ankle, calcaneus showed no acute findings. Differential Diagnosis Differential Diagnoses: The differential diagnosis associated with the presentation includes Fracture, contusion, DVT, sprain Radiology Impression Discussion of test interpretation with radiology: I have reviewed the radiologist's reading. Radiologist Impression: EXAMINATION: XR CALCANEUS, RIGHT CLINICAL INFORMATION: Heel pain. Fall. COMPARISON: None available. TECHNIQUE: Lateral and axial views of the right calcaneus were obtained. FINDINGS: The bones and soft tissues are normal. No fracture. Alignment is anatomic. Joint spaces are maintained. No enthesopathic spurs are evident at the calcaneus. XR/XR calcaneus RT min 2V IMPRESSION: Normal right calcaneus. Dictated By: Willy Montague MD Discharge Plan Discharge Clinical Impression: Ankle sprain and strain Patient Disposition: Home, Self-Care Instructions: Ankle Strain (ED) Additional Instructions: Your seen in the emergency department due to right ankle pain and swelling. Your x-rays did not show any broken bones. Your ultrasound was normal. Please rest, ice, use Clifton wrap, elevate your leg. Using crutches can also help with your symptoms. Take ibuprofen as directed as needed for pain and inflammation. You may follow-up with orthopedics if your symptoms persist. Call to make an appointment. If any new or worsening symptoms occur including but not limited to redness, swelling, fevers or chills, please return for re-evaluation. Under foot x-rayed there was findings of erosive arthritis. I am referring you to a stogy roller for further workup. Please call to make an appointment. Prescriptions: New ibuprofen 600 mg tablet 600 mg PO Q6H PRN (Reason: pain) Qty: 30 0RF No Action clotrimazole 1 % cream 1 appl topical BID 14 Days Qty: 45 0RF cephalexin 500 mg capsule 500 mg PO QID 7 Days Qty: 28 0RF naproxen 500 mg tablet 500 mg PO BID PRN (Reason: pain) 7 Days Qty: 14 0RF prednisone 20 mg tablet 40 mg PO DAILY 5 Days Qty: 10 0RF oseltamivir [Tamiflu] 75 mg capsule 75 mg PO Q12H 5 Days Qty: 10 0RF cephalexin 500 mg capsule 500 mg PO QID 7 Days Qty: 28 0RF naproxen 500 mg tablet 500 mg PO BID PRN (Reason: pain) Qty: 20 0RF Referrals: [facility] [place] Orthopedic Surgeons [Provider Group] [facility] [place] Rheumatology Service [Provider Group] Discharge Date/Time: 03/18/23 02:09
[2023-03-18] MEDS: Ibuprofen 600 MG TABLET PO (01:53)
--- NOTE | 2023-03-18 01:56 | PC.NURSE ---
fredi wrap applied to patients right foot/ankle. patient tolerated well, cms intact. patient medicated per JUN for pain
== END 2023-03-18 02:09 | disposition home or self-care (01) ==
PROVIDERS: Emergency Provider Emergency Medicine
DX: S93.401A Sprain of unspecified ligament of right ankle, initial encounter (principal); R60.0 Localized edema; M79.671 Pain in right foot; X58.XXXA Exposure to other specified factors, initial encounter; Y93.9 Activity, unspecified; Y92.9 Unspecified place or not applicable; Y99.9 Unspecified external cause status
CPT/HCPCS: 73610; 73630; 73650; 93971; 99283; 99284

== ENCOUNTER 2023-04-09 11:41 | Emergency (ER) | payer SELFPAY ==
[2023-04-09 12:01] VITALS: BP 153/99; PULSE 96; RESP 18; TEMP 36.7; O2SAT 98; BMI 40.3
--- NOTE | 2023-04-09 12:01 | ED.LOWEXIN ---
HPI - Extremity Injury (Lower) General Chief Complaint: Extremity Injury, Lower Stated Complaint: twisted ankle 1month ago, still in pain Time Seen by Provider: 04/09/23 12:02 Source: patient Mode of arrival: ambulatory Limitations: no limitations History of Present Illness HPI Narrative: Patient is a 32-year-old male presenting to the ED with complaint of ongoing right ankle pain. States he initially slept with his right foot hyperextended, then developed increased pain while playing basketball a week later. Was seen here on 03/18 and diagnosed with ankle strain, was provided with an CRISTIANO wrap and was advised to use ibuprofen. Patient states he has been doing this but pain has persisted. Has crutches at home. Denies any new injuries. Denies any weakness, numbness or tingling. MD complaint: ankle injury Onset (ago): week(s) Injury: Right: ankle Severity scale (1-10): 6 Relieving factors: NSAID and rest Exacerbating factors: weight bearing and palpation Context: other Other symptoms: none Treatments prior to arrival: bandage and NSAIDS Related Data Previous Rx's Medication Instructions Recorded cephalexin 500 mg capsule 500 mg PO QID 7 days #28 caps 02/14/21 naproxen 500 mg tablet 500 mg PO BID PRN pain #20 tabs 02/14/21 cephalexin 500 mg capsule 500 mg PO QID 7 days #28 caps 12/29/21 clotrimazole 1 % topical cream 1 appl topical BID 2 weeks #45 12/29/21 grams naproxen 500 mg tablet 500 mg PO BID PRN pain 7 days #14 12/29/21 tabs prednisone 20 mg tablet 40 mg (2 x 20 mg) PO DAILY 5 days 12/29/21 #10 tabs oseltamivir 75 mg capsule (Tamiflu) 75 mg PO Q12H 5 days #10 caps 03/28/22 ibuprofen 600 mg tablet 600 mg PO Q6H PRN pain #30 tabs 03/18/23 ibuprofen 600 mg tablet 600 mg PO Q6H PRN pain #30 tabs 04/09/23 Allergies Allergy/AdvReac Type Severity Reaction Status Date / Time amoxicillin [AMOXICILLIN] Allergy Severe ANAPHYLAXIS Verified 04/09/23 12:01 Penicillins Allergy Severe HIVES Verified 04/09/23 12:01 Review of Systems Review of Systems: As per HPI Yes all other systems are reviewed and are negative Constitutional: Constitutional: Reports as per [facility] Past Medical History Medical History No known health problems Social History Social History Alcohol intake: unknown Advance Directives: No Advance Directives Information Provided: No Physical Exam Vital Signs: Vital Signs: Last Vital Signs Temp 98.1 F 04/09/23 12:01 Pulse 96 04/09/23 12:01 Resp 18 04/09/23 12:01 BP 153/99 H 04/09/23 12:01 Pulse Ox 98 04/09/23 12:01 O2 Del Method Room Air 04/09/23 12:01 BMI result Body Mass Index 40.3 Vital signs have been reviewed and appear to be correct. Blood pressure elevated. Heart rate normal. Respiratory rate normal. Temperature normal. Oxygen saturation normal. Const: General: cooperative, healthy appearing and no acute distress Orientation/consciousness: oriented to person, oriented to place, oriented to time and patient oriented x3 Limitations: no limitations HEENT: Head: Yes normocephalic and Yes atraumatic Ears: external ears normal General nose exam: Normal external nose present Face and sinus: Yes face symmetric Mouth: oropharynx normal and moist mucous membranes Throat: Yes uvula midline Eyes: Pupils: Equal, round and reactive pupils present Neck: Neck: Yes normal visual inspection and Yes supple Resp: Effort & Inspection: normal respiratory effort and able to speak in complete sentences Auscultation: clear to auscultation bilaterally Cardio: Rate: regular rate Rhythm: regular rhythm Heart sounds: S1 normal heart sound present and S2 normal heart sound present GI: Palpation (GI): Soft to palpation and nontender Auscultation: normoactive bowel sounds : General: Yes no CVA tenderness Back/Spine/Pelvis: Back: no CVA tenderness Skin: General skin exam: elasticity normal and turgor normal Neuro: General: oriented to person, oriented to place, oriented to time, patient oriented x3, moves all extremities, no focal motor deficits and CN's II-XI intact bilaterally Cranial nerves: Yes Equal, round and reactive pupils present Cognition (Neuro): normal cognition Extrem: General: Yes full ROM, Yes no pedal edema and Yes no calf tenderness Right lower extremity: ankle Details: tenderness Location: of the lateral malleolus and of the medial malleolus, swelling Details: laterally and medially and abnormal ROM (slightly limited with all ROM due to swelling); no unusual warmth and no ecchymosis and foot Details: vascular exam Details: dorsalis pedis pulse present and posterior tibial pulse present Psych: Mental Status: mental status grossly normal Affect: normal affect Thought process: Normal thought process present Course Course Course Narrative: Medical Decision Making Medical Decision Making [facility] Narrative: Patient is a 32-year-old male presenting to the ED with complaint of ongoing right ankle pain. On exam patient is awake, A+Ox3, BP elevated, VS otherwise WNL, afebrile, normal neurological exam without focal deficits, physical exam findings as above. Given reported symptoms and physical exam findings, initial differential includes Right ankle sprain drain, sprain. do not suspect fracture as patient denies any new injuries since previous ED visit. Discussed with patient that he needs to follow-up with orthopedics for further evaluation and management. Will provide patient with Aircast splint in the ED today, prescribed additional ibuprofen and instructed patient to alternate Tylenol and ibuprofen every 3 hours for better pain control, discussed keeping foot elevated at rest and icing intermittently. Return precautions discussed. Patient verbalized understanding of and agreement with plan. Differential Diagnosis Differential Diagnoses: The differential diagnosis associated with the presentation includes As per MDM. External Record Review External record reviewed: Inpatient record, Office record and Outpatient record Prescription Management I considered prescription management with: Pain Medication Discharge Plan Discharge Clinical Impression: Right ankle sprain Patient Disposition: Home, Self-Care Instructions: Ankle Sprain (DC), How to Use an Elastic Bandage (ED), Ankle Stirrup Splint (ED), R.I.C.E. Treatment (ED) Additional Instructions: You have been evaluated in the emergency department today for right ankle pain. Your evaluation did not find evidence of medical conditions requiring emergent intervention at this time. Please rest, ice, and elevate your ankle, and resume normal activities as tolerated. We recommend you take 600mg ibuprofen every 6 hours or 650mg Tylenol every 6 hours as needed for pain. If needed you can alternate these medications and take 1 medication every 3 hours. For instance at noon take ibuprofen, then at 3:00 p.m. take Tylenol, then at 6:00 p.m. take ibuprofen. Please contact the orthopedic office first thing Shilpa morning for an appointment. Please schedule an appointment for follow-up with your primary care provider as well. Return to the emergency department if you experience worsening pain, numbness, tingling, change of color in your foot, or any other concerning symptoms. Prescriptions: New ibuprofen 600 mg tablet 600 mg PO Q6H PRN (Reason: pain) Qty: 30 0RF No Action clotrimazole 1 % cream 1 appl topical BID 14 Days Qty: 45 0RF cephalexin 500 mg capsule 500 mg PO QID 7 Days Qty: 28 0RF naproxen 500 mg tablet 500 mg PO BID PRN (Reason: pain) 7 Days Qty: 14 0RF prednisone 20 mg tablet 40 mg PO DAILY 5 Days Qty: 10 0RF oseltamivir [Tamiflu] 75 mg capsule 75 mg PO Q12H 5 Days Qty: 10 0RF cephalexin 500 mg capsule 500 mg PO QID 7 Days Qty: 28 0RF naproxen 500 mg tablet 500 mg PO BID PRN (Reason: pain) Qty: 20 0RF ibuprofen 600 mg tablet 600 mg PO Q6H PRN (Reason: pain) Qty: 30 0RF Referrals: [facility] [place] Orthopedic Surgeons [Provider Group] Interventions: ED Discharge Assessment Last Done: 04/09/23 12:15
== END 2023-04-09 12:17 | disposition home or self-care (01) ==
PROVIDERS: Emergency Provider Emergency Medicine
DX: S93.401A Sprain of unspecified ligament of right ankle, initial encounter (principal); X50.1XXA Overexertion from prolonged static or awkward postures, initial encounter; Y93.67 Activity, basketball; Y92.9 Unspecified place or not applicable; Y99.9 Unspecified external cause status
CPT/HCPCS: 99282

== ENCOUNTER 2023-05-02 08:03 | Outpatient (AMB) | payer SELFPAY ==
[2023-05-02 08:22] VITALS: BMI 40.3
--- NOTE | 2023-05-02 08:22 | A.OFFVIS_ITS ---
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 Patient reports when he woke up he couldn't walking because he felt like he had a pinched nerve, however when he was playing basketball he jumped up and landed on his ankle wrong causing him a lot of pain. He states that his pain is a 2-3/10 on the pain scale. He was given a CRISTIANO wrap and ibuprofen which didn't give him relief. 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 The patient presented to the ED on 03/17/2023 status post 10 days of right foot, ankle, heel, and calf pain. The patient reported he jumped up while playing basketball and landed on the right foot causing him pain. X-rays of the right foot were obtained. He was diagnosed with an ankle sprain and given an CRISTIANO wrap and crutches with instructions to ice and elevate. He returned to the ED on 04/09/2023 where he states he initially slept with his right foot hyper-extended and then a week later had increased pain while playing basketball. He was given an aircast splint and prescribed additional Ibuprofen. While in the office today the patient reports he work up and he could not walk due to feeling a pinched nerve when he tried to flex the ankle. He also reports an incident where he jumped up and landed on his ankle incorrectly which is causing him a lot of pain. He reports his pain is a 2-3/10. He confirms being given an CRISTIANO wrap and ibuprofen which gave him no relief. He states he was bed bound for a week. He claims to have a sharp pain, numbness, and tingling in the right foot/ankle. He states he is unable to move the ankle in all ROM. He states he is unable to ambulate stairs. He denies a history of gout and states he has only had an ingrown toenail. He denies a history of autoimmune diseases. Patient has a history of occasional cigarette smoking, per ED note. 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 He confirms he is going to try and start this job. He states he has been out of work since 02/2023. [facility] Medical History No known health problems Social History (Updated 05/02/23 @ 08:22 by Shannan Mendes) Alcohol intake: unknown Current occupational status: employed Current occupation: [employer] Review of Systems Const All systems reviewed & are unremarkable except as noted in HPI and below Physical Exam Vital Signs: BMI result Body Mass Index 40.3 Const General: cooperative and no acute distress Orientation/consciousness: patient oriented x3 Resp Effort & Inspection: normal respiratory effort and able to speak in complete sentences Cardio Peripheral pulses: Peripheral pulses 2+ throughout Skin General skin exam: no rashes or lesions noted Neuro General: patient oriented x3 Extrem Other: Right ankle: Normal to inspection. No ecchymosis, erythema, or edema. Mild tenderness to palpation along the tibial and peroneal tendons. Patient is able to demonstrate dorsiflexion, plantar flexion, pronation and supination. Negative anterior drawer. Sensation intact. Pedal Pulse intact. Assessment & Plan Assessment & Plan (1) Right ankle sprain: Code(s): S93.401A - Sprain of unspecified ligament of right ankle, initial encounter Plan Mr. Combs is a 32-year-old male who presents in the office today, as a new patient, for an evaluation of right ankle pain. The patient presented to the ED on 03/17/2023 status post 10 days of right foot, ankle, heel, and calf pain. The patient reported he jumped up while playing basketball and landed on the right foot causing him pain. X-rays of the right foot were obtained. He was diagnosed with an ankle sprain and given an CRISTIANO wrap and crutches with instructions to ice and elevate. He returned to the ED on 04/09/2023 where he states he initially slept with his right foot hyper-extended and then a week later had increased pain while playing basketball. He was given an aircast splint and prescribed additional Ibuprofen. While in the office today the patient reports he work up and he could not walk due to feeling a pinched nerve when he tried to flex the ankle. He also reports an incident where he jumped up and landed on his ankle incorrectly which is causing him a lot of pain. He reports his pain is a 2-3/10. He confirms being given an CRISTIANO wrap and ibuprofen which gave him no relief. He states he was bed bound for a week. He claims to have a sharp pain, numbness, and tingling in the right foot/ankle. He states he is unable to move the ankle in all ROM. He states he is unable to ambulate stairs. He denies a history of gout and states he has only had an ingrown toenail. He denies a history of autoimmune diseases. Patient has a history of occasional cigarette smoking, per ED note. 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 He states he has been out of work since 02/2023. The patient will be referred to physical therapy to work on ROM and stiffness in the right ankle. If after physical therapy has been completed and the patient is still having pain we will consider moving forward with an MRI for further evaluation. I would like for the patient to discontinue the use of the aircast splint at this time. Should the patient start his job and feel his ankle is not able to support him he can call the office and we can give him a work note with possibility of out of work until follow up. Follow up will be in 6 weeks, or sooner if needed. X-rays of the right ankle, obtained on 03/17/2023, revealed: There is marginal erosion of the head of the first metatarsal along the medial aspect which could be sequela of underlying erosive arthritis. The head of the second through fifth metatarsal otherwise intact. There is no evidence of acute fracture or dislocation. Intertarsal, tarsometatarsal, metatarsophalangeal and interphalangeal joints are intact. Surrounding soft tissues is normal. Ankle mortise is preserved. Talar dome is intact. Patient Instructions: Scribed for Mariaelena Nicole PA-C by Luisa Perez medical transcriptionist, on 05/02/2023 at 8:04 am, EST. Coding Level of Care Code New Pt Level 4 (79715) Diagnoses Right ankle sprain S93.401A
== END 2023-05-02 08:38 | disposition home or self-care (01) ==
PROVIDERS: Visit Provider Physician Assistant
DX: S93.401A Sprain of unspecified ligament of right ankle, initial encounter (principal)
CPT/HCPCS: 99203

== ENCOUNTER 2023-05-02 09:26 | Outpatient (REF) | payer SELFPAY | END 2023-05-02 09:27 | disposition home or self-care (01) | LOC: HO.HOSX 09:26 | PROVIDERS: Visit Provider Physician Assistant | DX: S93.401A Sprain of unspecified ligament of right ankle, initial encounter (principal) | CPT/HCPCS: 99202 ==

== ENCOUNTER 2023-08-16 08:57 | Emergency (ER) | payer MEDICAID, SELFPAY ==
--- NOTE | ~2023-08-16 | XR_ITS ---
EXAMINATION: XR ANKLE, RIGHT CLINICAL INFORMATION: Ankle injury COMPARISON: None available. TECHNIQUE: AP, lateral, and mortise views of the right ankle. FINDINGS: No fracture. Alignment is anatomic. No erosions. Joint spaces are maintained. Soft tissue swelling is noted medially and laterally. XR/XR ankle RT min 3V IMPRESSION: Soft tissue swelling. No acute fracture or subluxation.
[2023-08-16 09:22] VITALS: BP 146/81; PULSE 96; RESP 16; TEMP 36.8; O2SAT 97; BMI 45.3
--- NOTE | 2023-08-16 12:51 | ED_ITS ---
HPI - General Adult General Chief complaint: Extremity Injury, Lower Stated complaint: R Ankle Injury 08/09/23 Time Seen by Provider: 08/16/23 12:46 Source: patient Mode of arrival: ambulatory Limitations: no limitations History of Present Illness HPI narrative: Patient is a 32 year old assigned male at with no reported medical history presenting to the emergency department today with right ankle pain. Patient states that he was working a week ago and stepped wrong with his right ankle. Patient states that the pain has worsened since. Patient states that he injured this same ankle in February of 2023. Patient denies any head strike or loss of consciousness with the incident. Patient denies any dizziness, lightheadedness, abdominal pain, nausea, vomiting, fever, chills, blurry vision, double vision, loss of vision, chest pain, difficulty breathing, shortness of breath, back pain, night sweats, pain with urination, increased urinary frequency, increased urinary urgency, blood in his urine or stool, syncope or a near syncopal episode, bowel incontinence, bladder incontinence, bowel retention, bladder retention, or any other complaints at this time. Onset (ago): week(s) (1) Location: right and lower extremity Radiation: non-radiation Severity: mild Severity scale (1-10): 3 Quality: aching and dull Pain Consistency: constant Relieving factors: immobilization Exacerbating factors: movement Associated symptoms: denies other symptoms Treatments prior to arrival: none Related Data Previous Rx's ?Medication ?Instructions ?Recorded cephalexin 500 mg capsule 500 mg PO QID 7 days #28 caps 02/14/21 naproxen 500 mg tablet 500 mg PO BID PRN pain #20 tabs 02/14/21 cephalexin 500 mg capsule 500 mg PO QID 7 days #28 caps 12/29/21 clotrimazole 1 % topical cream 1 appl topical BID 2 weeks #45 12/29/21 grams naproxen 500 mg tablet 500 mg PO BID PRN pain 7 days #14 12/29/21 tabs prednisone 20 mg tablet 40 mg (2 x 20 mg) PO DAILY 5 days 12/29/21 #10 tabs oseltamivir 75 mg capsule (Tamiflu) 75 mg PO Q12H 5 days #10 caps 03/28/22 ibuprofen 600 mg tablet 600 mg PO Q6H PRN pain #30 tabs 03/18/23 ibuprofen 600 mg tablet 600 mg PO Q6H PRN pain #30 tabs 04/09/23 ibuprofen 200 mg tablet 400 mg (2 x 200 mg) PO Q8H PRN 08/16/23 pain #30 tabs Allergies Allergy/AdvReac Type Severity Reaction Status Date / Time amoxicillin [AMOXICILLIN] Allergy Severe ANAPHYLAXIS Verified 08/16/23 09:22 Penicillins Allergy Severe HIVES Verified 08/16/23 09:22 Review of Systems Constitutional: Constitutional: Reports no additional constitutional complaints, Denies chills, Denies fever(s) and Denies night sweats Eyes: Eyes: Reports no additional eye complaints, Denies blurry vision, Denies change in vision, Denies diplopia, Denies eye discharge, Denies loss of vision and Denies eye pain ENT: Denies dizziness Cardiovascular: Cardiovascular: Reports no additional cardiovascular complaints, Denies chest pain, Denies lightheadedness, Denies Loss of Consciousness and Denies dyspnea Respiratory: Respiratory: Reports no additional respiratory complaints and Denies dyspnea Gastrointestinal: Gastrointestinal: Reports no additional gastrointestinal complaints, Denies abdominal pain, Denies melena, Denies hematochezia, Denies change in bowel habits and Denies change in stool character Genitourinary: Genitourinary: Reports no additional male genitourinary complaints, Denies hematuria, Denies oliguria, Denies difficulty urinating, Denies dysuria, Denies urinary frequency, Denies urinary hesitancy, Denies urinary incontinence and Denies urinary urgency Musculoskeletal: Musculoskeletal: Reports no additional musculoskeletal complaints, Denies numbness and Denies tingling Comments: right ankle pain Neurologic: Denies dizziness, Denies loss of vision, Denies numbness and Denies tingling Psychiatric: Psychiatric: Reports no additional psychiatric complaints Endocrine: Endocrine: Reports no additional endocrine complaints Hematologic/Lymphatic: Hematologic/Lymphatic: Reports no additional hematologic/lymphatic complaints Allergic/Immunologic: Allergic/Immunologic: Reports no additional allergic/immunologic complaints PMFSH Past Medical History Attestation statement: The following information was validated with the patient. Source: old records reviewed and nursing notes reviewed Medical History No known health problems Social History Social History Alcohol intake: unknown Advance Directives: No Do you have a plan to hurt others: No Plan Current occupational status: employed Current occupation: [employer] Physical Exam ED Vital Signs: Vital Signs - 24 hr 08/16/23 09:22 08/16/23 13:13 Temperature 98.2 F 98.1 F Pulse Rate 96 92 Respiratory Rate 16 16 Blood Pressure 146/81 H 141/78 H Pulse Oximetry 97 96 Oxygen Delivery Method Room Air Room Air BMI result Body Mass Index 45.3 Const General: cooperative, no acute distress, alert and awake Nutritional Appearance: well nourished Orientation/consciousness: patient oriented x3 Limitations: no limitations HENMT Head: Yes normal to inspection and Yes atraumatic Ears: hearing grossly normal bilaterally and external ears normal General nose exam: Normal external nose present, no nasal discharge noted and no epistaxis Face and sinus: Yes normal facial exam, No abrasion and No laceration Mouth: Normal oral and palatal mucosa present, no drooling and no muffled voice Eyes General: appearance normal, both eyes and all related structures Periorbital: periorbital findings normal Eyelids: Yes eyelids normal Conjunctivae: conjunctivae normal Pupils: Equal, round and reactive pupils present EOM: EOMs intact bilaterally Neck Neck: Yes normal visual inspection, Yes full ROM and Yes no lymphadenopathy Chest Chest palpation & inspection: normal inspection of the chest Resp Effort & Inspection: normal respiratory effort and able to speak in complete sentences GI Inspection: Yes normal to inspection Neuro General: patient oriented x3 and moves all extremities Cranial nerves: Yes Equal, round and reactive pupils present Cognition (Neuro): normal cognition Motor exam (neuro): 5/5 motor strength present throughout Sensory Exam: Normal double simultaneous stimulation for sensation Coordination: [id number] test normal Extrem Other: swelling present to the medial and lateral aspects of the right ankle General: Yes full ROM and Yes capillary refill normal Psych Appearance: grossly normal Mental Status: mental status grossly normal Affect: normal affect Attitude: cooperative Thought process: Normal thought process present Thought content: Normal thought content present Insight: Good insight present (Psych) Medications Administered Discontinued Medications Generic Name Dose Route Start Last Admin Trade Name Freq PRN Reason Stop Dose Admin Ketorolac Tromethamine 15 mg 08/16/23 12:58 08/16/23 13:08 Ketorolac Tromethamine 15 Mg/Ml Vial IM 08/16/23 12:59 15 mg ONCE ONE Administration Procedures Orthopedic Splinting/Casting Injury #1: Side: right Lower Extremity Injury Location: ankle Lower Extremity Immobilizer: boot orthosis Medical Decision Making Medical Decision Making MDM Narrative: Patient is a 32 year old assigned male at with no reported medical history presenting to the emergency department today with right ankle pain. Patient's physical exam showed minimal swelling to the right ankle but was otherwise unremarkable. Patient's right ankle x-ray showed no acute process. I explained my physical exam findings as well as all test results to the patient. I answered all questions asked by the patient. Patient's right ankle was placed in a walking boot, without incident. Patient's PMS was intact prior to and after boot placement. Patient brought his own crutches. I stressed the importance of the patient taking his medication as prescribed. I stressed the importance of the patient following up with his primary care provider, an orthopedic provider, and given this was a work place injury, work connection. I stressed the importance of the patient returning to the emergency department immediately if his symptoms were to worsen or if he were to develop any dizziness, shortness of breath, difficulty breathing, chest pain, blurry vision, loss of vision, nausea, vomiting, abdominal pain, fever, chills, back pain, or any other complaints. Patient verbalized agreement and understanding with this treatment plan and discharge. Differential Diagnosis Differential Diagnoses: The differential diagnosis associated with the presentation includes Right ankle sprain Right ankle strain Right ankle fracture Admission/Observation Consideration of admission/observation: Escalation of care including admission/observation considered Patient would have been admitted to the hospital had his work up had any findings where hospital admission was appropriate and his clinical presentation warranted hospital admission. Independent Interpretation I performed an independent interpretation of an: Plain X-Ray Interpretation: My interpretation is in agreement with the radiologist's impression of this imaging study. EXAMINATION: XR ANKLE, RIGHT CLINICAL INFORMATION: Ankle injury COMPARISON: None available. TECHNIQUE: AP, lateral, and mortise views of the right ankle. FINDINGS: No fracture. Alignment is anatomic. No erosions. Joint spaces are maintained. Soft tissue swelling is noted medially and laterally. XR/XR ankle RT min 3V IMPRESSION: Soft tissue swelling. No acute fracture or subluxation. Dictated By: Edgar Godinez MD Signed By: Electronically signed by Edgar Godinez MD 08/16/23 0904 Radiology Impression Discussion of test interpretation with radiology: I have reviewed the radiologist's reading. Discharge Plan Discharge Clinical Impression: Ankle sprain and strain Patient Disposition: Home, Self-Care Instructions: Ankle Sprain (ED) Additional Instructions: You may remove the boot when not ambulating. You should keep your right lower e xtremity elevated when not ambulating. Follow up with your primary care provider and an orthopedic provider. Given this was a work place injury, you should follow up with work connection. Return to the emergency department immediately if your symptoms worsen or if you develop any dizziness, shortness of breath, difficulty breathing, chest pain, blurry vision, loss of vision, nausea, vomiting, abdominal pain, fever, chills, back pain, or any other complaints. Prescriptions: New ibuprofen 200 mg tablet 400 mg PO Q8H PRN (Reason: pain) Qty: 30 0RF No Action clotrimazole 1 % cream 1 appl topical BID 14 Days Qty: 45 0RF cephalexin 500 mg capsule 500 mg PO QID 7 Days Qty: 28 0RF naproxen 500 mg tablet 500 mg PO BID PRN (Reason: pain) 7 Days Qty: 14 0RF prednisone 20 mg tablet 40 mg PO DAILY 5 Days Qty: 10 0RF oseltamivir [Tamiflu] 75 mg capsule 75 mg PO Q12H 5 Days Qty: 10 0RF cephalexin 500 mg capsule 500 mg PO QID 7 Days Qty: 28 0RF naproxen 500 mg tablet 500 mg PO BID PRN (Reason: pain) Qty: 20 0RF ibuprofen 600 mg tablet 600 mg PO Q6H PRN (Reason: pain) Qty: 30 0RF ibuprofen 600 mg tablet 600 mg PO Q6H PRN (Reason: pain) Qty: 30 0RF [place] [facility] [facility] [place]] (Call to establish and follow up with a primary care provider. If you already have a primary care provider, please follow up with them.) [facility] [place] [facility] [facility] Group] [facility] [place] [facility] [Provider Group] (Call to establish and follow up with an orthopedic provider.) [facility] [Provider Group] (Given this was a work place injury, you should follow up with work connection.) Stand Alone Forms: Work/School Release Interventions: ED Discharge Assessment Last Done: 08/16/23 13:13 Discharge Date/Time: 08/16/23 13:10 Print Language: Maldivian
[2023-08-16] MEDS: Ketorolac Tromethamine 15 MG/ML VIAL IM (13:08)
--- NOTE | 2023-08-16 13:12 | PC.NURSE ---
rt walking boot applied, pt medicated for pain per order, pt to discharge with referral to pcps/ortho
[2023-08-16 13:13] VITALS: BP 141/78; PULSE 92; RESP 16; TEMP 36.7; O2SAT 96
== END 2023-08-16 13:10 | disposition home or self-care (01) ==
PROVIDERS: Emergency Provider Emergency Medicine
DX: S93.401A Sprain of unspecified ligament of right ankle, initial encounter (principal); M25.571 Pain in right ankle and joints of right foot; W01.0XXA Fall on same level from slipping, tripping and stumbling without subsequent striking against object, initial encounter; Y93.9 Activity, unspecified; Y92.9 Unspecified place or not applicable; Y99.0 Civilian activity done for income or pay
CPT/HCPCS: 73610; 96372; 99283; 99284; J1885

== ENCOUNTER 2023-09-11 09:55 | Outpatient (REF) | payer MEDICAID, SELFPAY | END 2023-09-11 09:56 | disposition home or self-care (01) | LOC: HO.HOSX 09:55 | PROVIDERS: Visit Provider Physician Assistant | DX: Z13.89 Encounter for screening for other disorder (principal) ==

== ENCOUNTER 2024-01-08 09:02 | Emergency (ER) | payer OTHER, SELFPAY ==
--- NOTE | ~2024-01-08 | XR_ITS ---
EXAMINATION: XR LEFT FOOT XR LEFT ANKLE CLINICAL INFORMATION: Twisting injury. COMPARISON: December 28, 2021 TECHNIQUE: 2 views of the left ankle were obtained. 3 views of the left foot were obtained. FINDINGS: Alignment is anatomic. Joint spaces are preserved. Talar dome is intact. No displaced fracture or dislocation. Achilles enthesopathy. Mild medial ankle soft tissue swelling. XR/XR ankle LT min 3V IMPRESSION: No acute abnormality. Electronically signed by: Harman Person MD 01/08/2024 10:19 AM EDT
--- NOTE | ~2024-01-08 | XR_ITS ---
EXAMINATION: XR LEFT FOOT XR LEFT ANKLE CLINICAL INFORMATION: Twisting injury. COMPARISON: December 28, 2021 TECHNIQUE: 2 views of the left ankle were obtained. 3 views of the left foot were obtained. FINDINGS: Alignment is anatomic. Joint spaces are preserved. Talar dome is intact. No displaced fracture or dislocation. Achilles enthesopathy. Mild medial ankle soft tissue swelling. XR/XR foot LT min 3V IMPRESSION: No acute abnormality. Electronically signed by: Harman Person MD 01/08/2024 10:19 AM EDT
[2024-01-08 09:35] VITALS: BP 144/99; PULSE 106; RESP 20; TEMP 36.9; O2SAT 98; BMI 42.0
--- NOTE | 2024-01-08 09:35 | ED_ITS ---
HPI - Extremity Injury (Lower) General Chief Complaint: Extremity Injury, Lower Stated Complaint: L ankle inj Time Seen by Provider: 01/08/24 09:35 Source: patient, RN notes reviewed and old records reviewed Mode of arrival: ambulatory Limitations: no limitations History of Present Illness ED Provider: Laura Nuñez PA-C HPI Narrative: 33 yo M with no significant past medical history presents to the ED c/o left foot/ankle pain and swelling s/p twisting it while playing basketball on Monday evening. Patient states that he was able to bear weight immediately after twisting it, but was unable to bear weight on it the following morning. Patient reports taking Motrin for pain and swelling with minimal improvement. Denies paresthesias, loss of sensation, cool extremity. MD complaint: ankle injury and foot injury Onset (ago): day(s) Injury: Left: ankle and foot Related Data Previous Rx's ?Medication ?Instructions ?Recorded cephalexin 500 mg capsule 500 mg PO QID 7 days #28 caps 02/14/21 naproxen 500 mg tablet 500 mg PO BID PRN pain #20 tabs 02/14/21 cephalexin 500 mg capsule 500 mg PO QID 7 days #28 caps 12/29/21 clotrimazole 1 % topical cream 1 appl topical BID 2 weeks #45 12/29/21 grams naproxen 500 mg tablet 500 mg PO BID PRN pain 7 days #14 12/29/21 tabs prednisone 20 mg tablet 40 mg (2 x 20 mg) PO DAILY 5 days 12/29/21 #10 tabs oseltamivir 75 mg capsule (Tamiflu) 75 mg PO Q12H 5 days #10 caps 03/28/22 ibuprofen 600 mg tablet 600 mg PO Q6H PRN pain #30 tabs 03/18/23 ibuprofen 600 mg tablet 600 mg PO Q6H PRN pain #30 tabs 04/09/23 ibuprofen 200 mg tablet 400 mg (2 x 200 mg) PO Q8H PRN 08/16/23 pain #30 tabs Allergies Allergy/AdvReac Type Severity Reaction Status Date / Time amoxicillin [AMOXICILLIN] Allergy Severe ANAPHYLAXIS Verified 01/08/24 09:37 Penicillins Allergy Severe HIVES Verified 01/08/24 09:37 Review of Systems Review of Systems: Yes all other systems are reviewed and are negative Constitutional: Constitutional: Reports as per HPI [facility] Past Medical History Attestation statement: The following information was validated with the patient. Source: old records reviewed Medical History No known health problems Social History Social History Alcohol intake: unknown Advance Directives: No Advance Directives Information Provided: No Do you have a plan to hurt others: No Plan Current occupational status: employed Current occupation: [employer] Physical Exam Vital Signs: Vital Signs: Last Vital Signs Temp 98.5 F 01/08/24 11:18 Pulse 106 H 01/08/24 11:18 Resp 20 01/08/24 11:18 BP 144/99 H 01/08/24 11:18 Pulse Ox 98 01/08/24 11:18 O2 Del Method Room Air 01/08/24 11:18 BMI result Body Mass Index 42.0 Const: General: cooperative, healthy appearing and no acute distress Orientation/consciousness: patient oriented x3 Limitations: no limitations HEENT: Head: Yes normal to inspection and Yes atraumatic Ears: hearing grossly normal bilaterally General nose exam: Normal external nose present Face and sinus: Yes normal facial exam Eyes: General: appearance normal, both eyes and all related structures EOM: EOMs intact bilaterally Neck: Neck: Yes normal visual inspection and Yes no meningeal signs Resp: Effort & Inspection: normal respiratory effort and no respiratory distress Cardio: Rate: regular rate Skin: Rashes: no rashes Wounds: no wounds Neuro: General: patient oriented x3, tone normal and no meningeal signs Cranial nerves: Yes CN's II-XII intact bilaterally Gait exam (Neuro): Normal gait present Extrem: Other: Left ankle + swelling to lateral and medial malleolus, limited ROM to ankle, mild ecchymosis to lateral aspect of foot, DP/PT pulses intact General: Yes normal to inspection Course Course Course Narrative: XR foot LT min 3V IMPRESSION: No acute abnormality. XR ankle LT min 3V IMPRESSION: No acute abnormality. > air cast and crutches applied. Results discussed with patient including worrisome signs and symptoms and strict return precautions, and when to return to the emergency department. They verbalized understanding and feel safe for discharge at this time. Medications Administered Discontinued Medications Generic Name Dose Route Start Last Admin Trade Name Freq PRN Reason Stop Dose Admin Ketorolac Tromethamine 30 mg 01/08/24 09:49 01/08/24 10:14 Ketorolac Tromethamine 30 Mg/Ml Vial IM 01/08/24 09:50 30 mg ONCE ONE Administration Medical Decision Making Medical Decision Making [facility] Narrative: 33 yo M with no significant past medical history presents to the ED c/o left foot/ankle pain and swelling s/p twisting it while playing basketball on Monday evening. On exam left ankle is positive for swelling to lateral and medial malleolus, with limited ROM to ankle, mild ecchymosis to lateral aspect of foot, and DP/PT pulses intact. No evidence of septic joint, compartments soft. Concern for foot/ankle fracture, foot/ankle sprain, ligament tear. Plan for x- rays left foot/ankle and pain control. Please refer to course for remaining clinical decision making, interpretation of labs/imaging results, and discussions with consultants and/or family members. Differential Diagnosis Differential Diagnoses: The differential diagnosis associated with the presentation includes As above Radiology Impression Discussion of test interpretation with radiology: I have reviewed the radiologist's reading. External Record Review External record reviewed: Inpatient record, Office record, Outpatient record, Prior outpatient labs, Prior outpatient radiology, Primary care record and Outside ED record Tests considered The following testing was considered but not selected: As above Discharge Plan Discharge Clinical Impression: Ankle sprain and strain Patient Disposition: Home, Self-Care Instructions: Ankle Sprain (DC) Additional Instructions: Your x-rays are unremarkable. You sprain her ankle Ice and elevate Take Tylenol and ibuprofen for pain/swelling Wear air cast and use crutches as needed If pain persists or worsen or pain becomes unbearable return to the ED Prescriptions: No Action clotrimazole 1 % cream 1 appl topical BID 14 Days Qty: 45 0RF cephalexin 500 mg capsule 500 mg PO QID 7 Days Qty: 28 0RF naproxen 500 mg tablet 500 mg PO BID PRN (Reason: pain) 7 Days Qty: 14 0RF prednisone 20 mg tablet 40 mg PO DAILY 5 Days Qty: 10 0RF oseltamivir [Tamiflu] 75 mg capsule 75 mg PO Q12H 5 Days Qty: 10 0RF cephalexin 500 mg capsule 500 mg PO QID 7 Days Qty: 28 0RF naproxen 500 mg tablet 500 mg PO BID PRN (Reason: pain) Qty: 20 0RF ibuprofen 600 mg tablet 600 mg PO Q6H PRN (Reason: pain) Qty: 30 0RF ibuprofen 200 mg tablet 400 mg PO Q8H PRN (Reason: pain) Qty: 30 0RF ibuprofen 600 mg tablet 600 mg PO Q6H PRN (Reason: pain) Qty: 30 0RF Referrals: Physician,None [Primary Care Provider] - Stand Alone Forms: Work/School Release Interventions: ED Discharge Assessment Last Done: 01/08/24 11:18 Discharge Date/Time: 01/08/24 11:19 Print Language: Macedonian
[2024-01-08] MEDS: Ketorolac Tromethamine 30 MG/ML VIAL IM (10:14)
[2024-01-08 11:18] VITALS: BP 144/99; PULSE 106; RESP 20; TEMP 36.9; O2SAT 98
== END 2024-01-08 11:19 | disposition home or self-care (01) ==
PROVIDERS: Emergency Provider Emergency Medicine
DX: S93.402A Sprain of unspecified ligament of left ankle, initial encounter (principal); S96.912A Strain of unspecified muscle and tendon at ankle and foot level, left foot, initial encounter; X50.1XXA Overexertion from prolonged static or awkward postures, initial encounter; Y93.67 Activity, basketball; Y92.310 Basketball court as the place of occurrence of the external cause; Y99.9 Unspecified external cause status
CPT/HCPCS: 73610; 73630; 96372; 99283; 99284; J1885

== ENCOUNTER 2024-02-09 05:47 | Emergency (ER) | payer OTHER, SELFPAY ==
--- NOTE | ~2024-02-09 | XR_ITS ---
EXAMINATION: XR ANKLE, LEFT CLINICAL INFORMATION: Pain after injury 2 months ago COMPARISON: Left ankle radiographs January 08, 2024 TECHNIQUE: AP, lateral, and mortise views of the left ankle. FINDINGS: Visualized portion of the distal tibia and fibula demonstrate no fracture. Ankle mortise is well-maintained. No localized soft tissue swelling. No radiopaque foreign body. No gross ankle joint effusion. XR/XR ankle LT min 3V IMPRESSION: Unremarkable radiographs of the left ankle. Electronically signed by: Roberto Estrada MD 02/09/2024 08:43 AM EDT
[2024-02-09 05:49] VITALS: BP 143/77; PULSE 86; RESP 188; TEMP 36.6; O2SAT 97; BMI 41.4
[2024-02-09 06:00] VITALS: BP 144/106; PULSE 84; RESP 20; TEMP 36.9; O2SAT 97
--- NOTE | 2024-02-09 07:04 | ED_ITS ---
HPI - Extremity Injury (Lower) General Chief Complaint: Extremity Injury, Lower Stated Complaint: left ankle swelling Time Seen by Provider: 02/09/24 07:04 Source: patient Mode of arrival: ambulatory Limitations: no limitations History of Present Illness ED Provider: Dr. Emmanuel Faith HPI Narrative: 33-year-old male who presents emergency department for evaluation of left ankle pain and swelling. The patient states that he was playing basketball and sprained his ankle on 01/08/2024. The patient was seen here in the emergency department at that time and had x-rays of his ankle and foot which showed no acute abnormalities. Patient was given an Aircast and was taking ibuprofen he states that his symptoms improved however he states that every 3 or 4 days after working his shift at [employer], he notes swelling and pain. The swelling and pain is more prominent over the lateral malleolus but he also has a over the medial malleolus. He states that while he was working 2 nights prior he moves quickly and may have twisted his ankle. He woke up the next day with increased swelling. He states this morning he was not able to bear weight secondary to pain therefore he came to the emergency department for evaluation. He has been taking ibuprofen with some relief his discomfort. Related Data Previous Rx's ?Medication ?Instructions ?Recorded cephalexin 500 mg capsule 500 mg PO QID 7 days #28 caps 02/14/21 naproxen 500 mg tablet 500 mg PO BID PRN pain #20 tabs 02/14/21 cephalexin 500 mg capsule 500 mg PO QID 7 days #28 caps 12/29/21 clotrimazole 1 % topical cream 1 appl topical BID 2 weeks #45 12/29/21 grams naproxen 500 mg tablet 500 mg PO BID PRN pain 7 days #14 12/29/21 tabs prednisone 20 mg tablet 40 mg (2 x 20 mg) PO DAILY 5 days 12/29/21 #10 tabs oseltamivir 75 mg capsule (Tamiflu) 75 mg PO Q12H 5 days #10 caps 03/28/22 ibuprofen 600 mg tablet 600 mg PO Q6H PRN pain #30 tabs 03/18/23 ibuprofen 600 mg tablet 600 mg PO Q6H PRN pain #30 tabs 04/09/23 ibuprofen 200 mg tablet 400 mg (2 x 200 mg) PO Q8H PRN 08/16/23 pain #30 tabs Allergies Allergy/AdvReac Type Severity Reaction Status Date / Time amoxicillin [AMOXICILLIN] Allergy Severe ANAPHYLAXIS Verified 02/09/24 05:49 Penicillins Allergy Severe HIVES Verified 02/09/24 05:49 [facility] Past Medical History Medical History No known health problems Social History Social History Alcohol intake: unknown Smoked in Last 30 Days: Yes Use of substances other than those prescribed or required for medical reasons: No Advance Directives: No Advance Directives Information Provided: No Do you have a plan to hurt others: No Plan Current occupational status: employed Current occupation: [employer] Physical Exam Vital Signs: Vital Signs: Last Vital Signs Temp 98.4 F 02/09/24 06:00 Pulse 84 02/09/24 06:00 Resp 20 02/09/24 06:00 BP 144/106 H 02/09/24 06:00 Pulse Ox 97 02/09/24 06:00 O2 Del Method Room Air 02/09/24 06:00 BMI result Body Mass Index 41.4 Vital signs revealed an elevated blood pressure of 144/106. Exam: General: Awake, alert in no distress Extremities: Patient does have soft tissue swelling over the lateral malleolus greater than the medial. He has increased tenderness over the lateral malleolus but does have tenderness over the medial malleolus as well. There is no erythema or increased warmth. Patient does have increased pain with medial stress of the ankle. Psych: Pleasant, cooperative Medical Decision Making Medical Decision Making MDM Narrative: 33-year-old male with no significant past medical history who presents emergency department for evaluation of left ankle pain and swelling. Patient injured his left ankle playing basketball on 01/08/2024 had negative x-rays of his ankle and foot here in the emergency department. Patient states that while he was at work 2 days prior he twisted his ankle and now has increased pain and swelling to his ankle to the point where he was not able to bear weight. Vital signs did reveal an elevated blood pressure-the patient was not on antihypertensive medications. Patient does have soft tissue swelling over the lateral malleolus greater than the medial malleolus with increased pain with medial stress and tenderness with palpation over the lateral malleolus. Differential diagnosis: ?Includes but is not limited to fracture, sprain, strain Course: Prescription Management I considered prescription management with: Pain Medication Discharge Plan Discharge Clinical Impression: Left ankle sprain Patient Disposition: Home, Self-Care Instructions: Leg Sprain (ED) Additional Instructions: I did look at your x-rays and I do not see a broken bone. I will text you with the radiology reading. Your symptoms are consistent with a sprain (stretching her injury of the ligaments of your ankle) Wear the walking boot for 1-2 weeks. Make sure that you take the boot off and ice your ankle for 15 minutes 4 to 6 times a day. Also when you have time keep your ankle elevated to help reduce the swelling. Take ibuprofen 400 mg pills, 1 pill every 6 hours (3 times a day) as needed for pain Follow-up with our orthopedic providers in 1-2 weeks. Please return to the emergency department if your symptoms get worse or if you develop any symptoms that are concerning to you. Please see the work Your blood pressure was high here in the emergency department. You will need to get a primary care doctor to evaluate and to determine if you need blood pressure medications. Exercising and losing weight can also help reduce your blood pressure. Try calling the following numbers to see if you can get a primary care provider to help you with your medical problems. [facility] PCP referral line [facility] Adult primary care and family medicine [facility] Prescriptions: No Action clotrimazole 1 % cream 1 appl topical BID 14 Days Qty: 45 0RF cephalexin 500 mg capsule 500 mg PO QID 7 Days Qty: 28 0RF naproxen 500 mg tablet 500 mg PO BID PRN (Reason: pain) 7 Days Qty: 14 0RF prednisone 20 mg tablet 40 mg PO DAILY 5 Days Qty: 10 0RF oseltamivir [Tamiflu] 75 mg capsule 75 mg PO Q12H 5 Days Qty: 10 0RF cephalexin 500 mg capsule 500 mg PO QID 7 Days Qty: 28 0RF naproxen 500 mg tablet 500 mg PO BID PRN (Reason: pain) Qty: 20 0RF ibuprofen 600 mg tablet 600 mg PO Q6H PRN (Reason: pain) Qty: 30 0RF ibuprofen 200 mg tablet 400 mg PO Q8H PRN (Reason: pain) Qty: 30 0RF ibuprofen 600 mg tablet 600 mg PO Q6H PRN (Reason: pain) Qty: 30 0RF Referrals: Devante Blanca MD [Physician] - 2 weeks (Left ankle sprain 01/08/2024, recurrent swelling and pain with re-injury 02/09/2024. Placed in Aircast walking boot.) Stand Alone Forms: Work/School Release Print Language: Divehi
[2024-02-09 08:53] VITALS: BP 145/87; PULSE 79; RESP 20; TEMP 37; O2SAT 97
[2024-02-09] MEDS: Ibuprofen 400 MG TABLET PO (08:58)
[2024-02-09 09:00] VITALS: BP 145/87; PULSE 79; RESP 20; TEMP 37; O2SAT 97
== END 2024-02-09 09:00 | disposition home or self-care (01) ==
PROVIDERS: Emergency Provider Emergency Medicine Emergency Medical Services
DX: S93.402A Sprain of unspecified ligament of left ankle, initial encounter (principal); R60.0 Localized edema; M25.572 Pain in left ankle and joints of left foot; X58.XXXA Exposure to other specified factors, initial encounter; Y93.89 Activity, other specified; Y92.89 Other specified places as the place of occurrence of the external cause; Y99.8 Other external cause status
CPT/HCPCS: 73610; 99283; 99284

== ENCOUNTER 2024-05-14 14:14 | Emergency (ER) | payer SELFPAY ==
--- NOTE | ~2024-05-14 | US_ITS ---
EXAMINATION: US TRIPLEX LOWER EXTREMITY, RIGHT CLINICAL INFORMATION: Right posterior thigh pain. COMPARISON: None available. TECHNIQUE: Color-flow triplex imaging with spectral analysis and compression Doppler were performed on the right lower extremity. FINDINGS: Respiratory variation, normal compression and augmented flow are noted throughout the right lower extremity. The visualized common femoral vein, superficial femoral vein, profunda femoral vein, popliteal vein and midcalf peroneal and posterior tibial venous segments show no evidence of deep venous thrombosis. There is no Donohue's cyst. US/US venous duplex LE RT IMPRESSION: No evidence of deep venous thrombosis involving the right lower extremity. Electronically signed by: Chin Brar MD 05/14/2024 05:15 PM EST
[2024-05-14 16:15] VITALS: BP 135/68; PULSE 82; RESP 16; TEMP 37.1; O2SAT 98; BMI 44.4
--- NOTE | 2024-05-14 16:29 | ED_ITS ---
HPI - Extremity Injury (Lower) General Chief Complaint: Extremity Injury, Lower Stated Complaint: R leg pain, pulled muscle? Time Seen by Provider: 05/14/24 17:23 Source: patient Mode of arrival: ambulatory Limitations: no limitations History of Present Illness ED Provider: MARCY JARRETT PA-C HPI Narrative: 33 year old male presents to the ED today for evaluation of cramping/ spasm to the back of his right thigh x24 hours. Pain began while he was sleeping and has continued into today. Pain does not radiate. Worse with palpation of the area. He has trial OTC tylenol and ice with improvement. Reports standing for long periods of time at work. No blunt injury or trauma. Denies recent travel/ long car rides. No calf pain, chest pain, palpitations or sob. Related Data Previous Rx's ?Medication ?Instructions ?Recorded cephalexin 500 mg capsule 500 mg PO QID 7 days #28 caps 02/14/21 naproxen 500 mg tablet 500 mg PO BID PRN pain #20 tabs 02/14/21 cephalexin 500 mg capsule 500 mg PO QID 7 days #28 caps 12/29/21 clotrimazole 1 % topical cream 1 appl topical BID 2 weeks #45 12/29/21 grams naproxen 500 mg tablet 500 mg PO BID PRN pain 7 days #14 12/29/21 tabs prednisone 20 mg tablet 40 mg (2 x 20 mg) PO DAILY 5 days 12/29/21 #10 tabs oseltamivir 75 mg capsule (Tamiflu) 75 mg PO Q12H 5 days #10 caps 03/28/22 ibuprofen 600 mg tablet 600 mg PO Q6H PRN pain #30 tabs 03/18/23 ibuprofen 600 mg tablet 600 mg PO Q6H PRN pain #30 tabs 04/09/23 ibuprofen 200 mg tablet 400 mg (2 x 200 mg) PO Q8H PRN 08/16/23 pain #30 tabs cyclobenzaprine 5 mg tablet 5 mg PO Q8H #7 tabs 05/14/24 lidocaine 5 % topical patch 1 patch topical DAILY #15 ea 05/14/24 (Lidoderm) Allergies Allergy/AdvReac Type Severity Reaction Status Date / Time amoxicillin [AMOXICILLIN] Allergy Severe ANAPHYLAXIS Verified 05/14/24 16:17 Penicillins Allergy Severe HIVES Verified 05/14/24 16:17 Review of Systems Review of Systems: Yes all other systems are reviewed and are negative [facility] Past Medical History Attestation statement: The following information was validated with the patient. Source: old records reviewed and nursing notes reviewed Medical History No known health problems Social History Social History Alcohol intake: unknown Advance Directives: No Advance Directives Information Provided: No Current occupational status: employed Current occupation: [employer] Physical Exam Vital Signs: Vital Signs: Last Vital Signs Temp 98.8 F 05/14/24 18:58 Pulse 82 05/14/24 18:58 Resp 16 05/14/24 18:58 BP 135/68 05/14/24 18:58 Pulse Ox 98 05/14/24 18:58 O2 Del Method Room Air 05/14/24 18:58 BMI result Body Mass Index 44.4 vital signs stable General: Well appearing, in no acute distress. Skin: Warm, dry, intact. No rashes or lesions. Head: Normocephalic, atraumatic. EENT: Hearing is intact b/l. Conjunctiva clear. PERRLA. EOM intact. Moist mucous membranes.? Cardiac: Chest wall symmetric. RRR Lungs: Normal respiratory effort without accessory muscle use. CTA bilaterally Back: No midline spinous or paraspinal tenderness. No step off deformity. Ext: +FROM intact to right hip/ knee. no overlying skin changes/ deformity to RLE. no obvious varicosities. ttp along posterior aspect of right thigh with palpable spasm. no warmth/ crepitus/ fluctuance. no tenderness along iliotibial tract. no calf tenderness. no pitting edema. 2+ dp/pt and popliteal pulse. Neuro: AOx3. Normal speech. ambulating w/ limping gait. Course Course Course Narrative: This is a Rapid Medical Examination (RME) performed by Romero Jarrett PA-C in triage. Full HPI, ROS, assessment and treatment plan per primary provider in the Main ED. 33 yo male no known hx here for eval of atraumatic right thigh pain x24 hours. no injury/trauma. woke up with pain. reports long episodes of standing during work. using ice and tylenol at home w/ minimal relief. +limping gait Plan: venous duplex Reevaluation(s) Reevaluation #1: venous duplex w/o dvt. no other abnormal findings. likely muscle spasm. will send flexeril and lido patches to pharmacy. Patient has remained stable throughout ED visit today. Discussed worrisome signs and symptoms and when to return to the ED. All questions answered at this time. Patient is agreeable with disposition and stable for discharge. Medical Decision Making Medical Decision Making MDM Narrative: 33 year old male presents to the ED today for evaluation of cramping/ spasm to the back of his right thigh x24 hours. vital signs stable. not hypoxic or tachycardic. he is nontoxic appearing and in NAD. mildly uncomfortable appearing, ambulating with limping gait. on exam, he has FROM intact to right hip/ knee. no overlying skin changes/ deformity to RLE. no obvious varicosities. ttp along posterior aspect of right thigh with palpable spasm. no warmth/ crepitus/ fluctuance. no tenderness along iliotibial tract. no calf tenderness. no pitting edema. 2+ dp/pt and popliteal pulse. Plan for venous duplex to r/o dvt. Likely muscle spasm vs muscle strain. Lower suspicion for tendonitis/ sciatica. No concern for fracture or osseous pathology - xrays/ CT not warranted at this time. Differential Diagnosis Differential Diagnoses: The differential diagnosis associated with the presentation includes as above Admission/Observation not indicated. Independent Interpretation I performed an independent interpretation of an: Ultrasound Interpretation: Venous duplex without clot Radiology Impression Discussion of test interpretation with radiology: I have reviewed the radiologist's reading. Radiologist Impression: Procedure(s): US venous duplex [facility] Accession Number(s): [id number] cc: Physician,Unknown ; Marcy Jarrett~ EXAMINATION: US TRIPLEX LOWER EXTREMITY, RIGHT CLINICAL INFORMATION: Right posterior thigh pain. COMPARISON: None available. TECHNIQUE: Color-flow triplex imaging with spectral analysis and compression Doppler were performed on the right lower extremity. FINDINGS: Respiratory variation, normal compression and augmented flow are noted throughout the right lower extremity. The visualized common femoral vein, superficial femoral vein, profunda femoral vein, popliteal vein and midcalf peroneal and posterior tibial venous segments show no evidence of deep venous thrombosis. There is no Donohue's cyst. US/US venous duplex LE RT IMPRESSION: No evidence of deep venous thrombosis involving the right lower extremity. Electronically signed by: Chin Brar MD 05/14/2024 05:15 PM [facility] Prescription Management I considered prescription management with: Other (flexeril, lido patch) Social Determinants Patient?s care significantly limited by Social Determinants of Health including: Other Social Determinant of Health Critical Care Time Critical Care Time Critical Care Time: No Discharge Plan Discharge Clinical Impression: Muscle spasm Patient Disposition: Home, Self-Care Instructions: Leg Cramps (ED), Muscle Spasm (ED) Additional Instructions: The ultrasound of your right leg did not demonstrate clot. Your pain is likely muscular in nature. Apply heat to the area. We recommend you take 600mg ibuprofen every 6 hours or tylenol 650mg every 6 hours as needed for pain. If needed, you can alternate these medications so that you take one medication every 3 hours. For example, at noon take ibuprofen, then at 3pm take tylenol, then at 6pm take ibuprofen. Flexeril is a muscle relaxer. Take this at night as it makes you drowsy. Do not drive, drink alcohol, or operate machinery while taking it. Lidoderm patches are numbing patches. Apply to painful areas. Please schedule an appointment for follow-up with your primary care provider this week for further evaluation of your symptoms. Return to the Emergency Department if you experience worsening back pain, difficulty walking, fevers, numbness, tingling, incontinence, or any other concerning symptoms. In the case of an emergency call 911. Prescriptions: New lidocaine [Lidoderm] 5 % adhesive patch,medicated 1 patch topical DAILY Qty: 15 0RF Rx Instructions: leave on most painful area for up to 12 hrs cyclobenzaprine 5 mg tablet 5 mg PO Q8H Qty: 7 0RF No Action clotrimazole 1 % cream 1 appl topical BID 14 Days Qty: 45 0RF cephalexin 500 mg capsule 500 mg PO QID 7 Days Qty: 28 0RF naproxen 500 mg tablet 500 mg PO BID PRN (Reason: pain) 7 Days Qty: 14 0RF prednisone 20 mg tablet 40 mg PO DAILY 5 Days Qty: 10 0RF oseltamivir [Tamiflu] 75 mg capsule 75 mg PO Q12H 5 Days Qty: 10 0RF cephalexin 500 mg capsule 500 mg PO QID 7 Days Qty: 28 0RF naproxen 500 mg tablet 500 mg PO BID PRN (Reason: pain) Qty: 20 0RF ibuprofen 600 mg tablet 600 mg PO Q6H PRN (Reason: pain) Qty: 30 0RF ibuprofen 200 mg tablet 400 mg PO Q8H PRN (Reason: pain) Qty: 30 0RF ibuprofen 600 mg tablet 600 mg PO Q6H PRN (Reason: pain) Qty: 30 0RF Stand Alone Forms: Work/School Release Interventions: ED Discharge Assessment Last Done: 05/14/24 18:58 Discharge Date/Time: 05/14/24 18:59 Print Language: Swiss
--- OUTSIDE RECORDS SUMMARY | 2024-05-14 17:36 | XMS_ITS | Encounter Summary ---
Author Organization [facility] Address [address] [place] [address] Phone Care Team Providers Care Sealer Aircraft Name Role Phone Becky Hu NP Primary Care Provider Jourdan aquino Encounter Details Date Type Department Care Team (Late st Contact Info) Description 11/24/2016 Conversion Encounter [facility] - [address] [address] Social History Tobacco Use Types Packs/Day Years Used Date Smoking Tobacco: Never Assessed Sex and Gender Information Value Date Recorded Sex Assigned at Not on file Legal Sex Male 4:33 PM EDT Gender Identity Not on file Sexual Orientation Not on file documented as of this encounter Plan of Treatment Not on file documented as of this encounter Visit Diagnoses Not on filedocumented in this encounter Care Teams Sealer Aircraft Relationship Specialty Start Date End Date Becky Hu NP PCP - General 11/18/16 06/28/22 documented as of this encounter
[2024-05-14 18:58] VITALS: BP 135/68; PULSE 82; RESP 16; TEMP 37.1; O2SAT 98
== END 2024-05-14 18:59 | disposition home or self-care (01) ==
PROVIDERS: Emergency Provider Emergency Medicine
DX: R60.0 Localized edema (principal); M79.651 Pain in right thigh; M62.831 Muscle spasm of calf
CPT/HCPCS: 93971; 99282; 99284

== ENCOUNTER → 2024-05-14 16:23 | Outpatient (BNV) | payer SELFPAY | PROVIDERS: Emergency Provider Emergency Medicine; Visit Provider Radiology Diagnostic Radiology | DX: M79.651 Pain in right thigh (principal) | CPT/HCPCS: 93971 ==

== ENCOUNTER 2025-03-09 08:21 | Emergency (ER) | payer SELFPAY ==
--- NOTE | ~2025-03-09 | XR_ITS ---
CLINICAL HISTORY: swelling pain 3 view right ankle Comparison: CR/SR - XR ANKLE 3 OR MORE VIEWS LEFT - 02/09/24 08:07 EDT CR/SR - XR ANKLE 3 OR MORE VIEWS RIGHT - 08/16/23 09:34 EDT Findings: Soft tissue swelling is demonstrated throughout the ankle. No fracture or dislocation. No significant loss of joint space, osteophytes, or erosions. Possible small ankle effusion. No radiopaque foreign body. IMPRESSION: Soft tissue swelling with possible small ankle effusion. No fracture or dislocation. This document has been electronically signed by: Cj Mcnally MD on 03/09/2025 11:26:34
[2025-03-09 08:25] VITALS: BP 128/78; PULSE 105; RESP 20; TEMP 36.1; O2SAT 96; BMI 42.0
--- OUTSIDE RECORDS SUMMARY | 2025-03-09 11:22 | XMS_ITS | Clinical Summary ---
Author Organization [facility] Address [address] [place] [id number] Phone Care Team Providers Care Checker/Stocker Name Role Phone Unavailable Primary Care Provider Unavailabl e Immunizations Immunization Administration Dates Next Due DTP 09/07/1994, 2,02/07/1991,11/07,08/07/1990 Hep B, ped/adol 09/07/1994,12/18/1991,09/07/1990 Hib (PRP-T) 07/08/1993,07/09/1991,08/07/1990 IPV 09/07/1994, 2,03/09/1991,08/07 Influenza Split 11/30/2009,02/27/2001,01/05/1998 Influenza, injectable, trivalent 01/05/1998,01/10 MMR 07/08/1993,07/09/1991,08/07/1990 Meningococcal Conj (Menactra) MCV4P 01/15/2010 Td (adult) (MBL), 2 Lf tetan us toxoid, PF, adsorbed 02/27/2001 Tdap 01/15/2010 Family History Relation Name Status Comments Brother Alive Brother: Alive and well Father Alive Father: Alive a nd well Mother Alive Mother: HIV Other Family history of Asthma, Family history of Migraines, Family history of Diabetes mellitus Social History Tobacco Use Types Packs/Day Years Used Date Smoking Tobacco: Never Assessed Sex and Gender Information Value Date Recorded Sex Assigned at Not on file Legal Sex Male 4:33 PM EDT Gender Identity Not on file Sexual Orientation Not on file Last Filed Vital Signs Vital Sign Reading Time Taken Comments Blood Pressure 126/80 01/15/2010 12:00 AM EDT Pulse 68 01/15/2010 12:00 AM EDT Temperature 36.2 C (97.2 F) 07/12/2010 12:00 AM EDT Respiratory Rate - - Oxygen Saturation - - Inhaled Oxygen Concentration - - Weight 108 kg (237 lb) 07/12/2010 12:00 AM EDT Height 165.1 cm (5' 5 ) 01/15/2010 12:00 AM EDT Body Mass Index 39.44 01/15/2010 12:00 AM EDT Plan of Treatment Health Maintenance Due Date Last Done Comments Varicella Vaccines (1 of 2 - 13+ 2-dose series) 2002 HPV Vaccines (1 - 3-dose SCDM series) 2016 DTaP,Tdap,and Td Vaccines (7 - Td or Tdap) 01/16/2020 01/15/2010, 02/27/2001, 09/07/1994, Additional history exists Influenza Vaccines (#1) 2024 12/01/19, 02/27/2001, 01/05/1998, Additional history exists COVID-19 Vaccine ( season) 2024 HIB Vaccines Completed 07/08/1993, 06/10, 08/07/1990 MMR Vaccines Completed 07/08/1993, 06/10, 08/07/1990 Hepatitis B Vaccines Completed 09/07/1994, 12/18/1991, 09/07/1990 IPV Vaccines Completed 09/07/1994, 12/1991, 03/09/1991, Additional history exists Meningococcal Vaccine Aged Out 01/15/2010 No ricardo tiesha eligible based on patient's age to complete this topic Hepatitis A Vaccines Aged Out No long er eligible based on patient's age to complete this topic Men B Vaccine Aged Out No longer elig ible based on patient's age to complete this topic Pneumococcal Vaccine Aged Out No long er eligible based on patient's age to complete this topic
--- OUTSIDE RECORDS SUMMARY | 2025-03-09 11:22 | XMS_ITS | Encounter Summary ---
Author Organization [facility] Address [address] [place] [address] Phone Care Team Providers Care Draw Operator Name Role Phone Becky Hu NP Primary Care Provider Jourdan aquino Encounter Details Date Type Department Care Team (Late st Contact Info) Description 11/24/2016 Conversion Encounter [facility] - [address] [address] Social History Tobacco Use Types Packs/Day Years [...] on filedocumented in this encounter Care Teams Draw Operator Relationship Specialty Start Date End Date Becky Hu NP PCP - General 11/18/16 06/28/22 documented as of this encounter
--- OUTSIDE RECORDS SUMMARY | 2025-03-09 11:22 | XMS_ITS | Clinical Summary ---
Author Organization [facility] Address [address] [place] [phone] Phone Care Team Providers Care Billet Shearer Name Role Phone Unavailable Primary Care Provider Unavailabl e Allergies No known active allergies Medications cyclobenzaprine (FLEXERIL) 5 MG tablet 5-10 mg every 6-8 hours as needed for skeletal muscle relaxation/mu scle spasm 20 tablet 05/19/2019 Active Active Problems No known active problems Social History Tobacco Use Types Packs/Day Years Used Date Smoking Tobacco: Never Smokeless Tobacco: Never Alcohol Use Standard Drinks/Week Comments Never 0 (1 standard drink = 0.6 oz pur e alcohol) Education Answer Date Recorded Are you interested in more education? Not on sorin e 08/05/2022 Are you concerned about learning? Not on file 08/05/2022 No 08/05/2022 No 08/05/2022 Digital Access Answer Date Recorded No 09/03/2022 No 09/03/2022 No 09/03/2022 Reliable internet access at home? Not on file 09/03/2022 Device with a working camera? Not on file Sex and Gender Information Value Date Recorded Sex Assigned at Not on file Legal Sex Male 6:40 PM EST Gender Identity Not on file Sexual Orientation Not on file Last Filed Vital Signs Vital Sign Reading Time Taken Comments Blood Pressure 162/87 05/19/2019 6:54 PM EST Pulse 82 05/19/2019 6:54 PM EST Temperature 37.2 C (99 F) 05/19/2019 6:54 PM EST Respiratory Rate 20 05/19/2019 6:54 PM EST Oxygen Saturation 98% 05/19/2019 6:54 PM EST Inhaled Oxygen Concentration - - Weight - - Height - - Body Mass Index - - Plan of Treatment Health Maintenance Due Date Last Done Comments Adult Td,Tdap Booster 1989 LIPID PANEL 1989 DEPRESSION SCREENING 2001 HEPATITIS C SCREENING 11/19/2007 HIV ONE-TIME SCREENING (18-6 5 YEARS) 11/19/2007 INFLUENZA VACCINE (#1) 2024 COVID-19 VACCINE ( - 2024-2 6 season) 2024 SMOKING STATUS SCREENING (On ce After 26 Yrs) Completed 05/19/2019 HEPATITIS A VACCINES Aged Out No long er eligible based on patient's age to complete this topic HIB VACCINES Aged Out No longer eligi ble based on patient's age to complete this topic MENINGOCOCCAL VACCINES (ACWY) Aged Out No longer eligible based on patient's age to complete this topic MENINGOCOCCAL VACCINES (B) Aged Out N o longer eligible based on patient's age to complete this topic PNEUMOCOCCAL VACCINES (0-49 years) Aged Out No longer eligible based on patient's age to complete this topic Medical Devices Not on file Insurance [address] [place] [phone] [facility] [address] [place] [phone] [place] [phone] Additional Source Comments The information contained in this document represents components of the legal health record. It is not the complete legal health record.[facility]
--- NOTE | 2025-03-09 11:44 | ED_ITS ---
HPI - General Adult General Chief complaint: Extremity Injury, Lower Stated complaint: Knee Leg Pain Time Seen by Provider: 03/09/25 11:43 Source: patient, family, RN notes reviewed and old records reviewed Mode of arrival: wheelchair Limitations: no limitations History of Present Illness ED Provider: [place] HPI narrative: patient is a 34-year-old male presenting to the emergency department with complaint of right ankle pain and swelling for the past few weeks. Denies any initial injury or trauma. States pain has worsened over the past few days. 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 Mother is with him at bedside and reports personal history of gout, feels patient's symptoms may be related to this. Patient reports similar episodes of pain and swelling which have resolved on their own in the past. difficulty with ambulation over the past few days due to pain. MD complaint: Ankle pain Onset (ago): week(s) Related Data Previous Rx's ?Medication ?Instructions ?Recorded cephalexin 500 mg capsule 500 mg PO QID 7 days #28 cap s 02/14/21 naproxen 500 mg tablet 500 mg PO BID PRN pain #20 t abs 02/14/21 cephalexin 500 mg capsule 500 mg PO QID 7 days #28 cap s 12/29/21 clotrimazole 1 % topical cream 1 appl topical BID 2 we eks #45 12/29/21 grams naproxen 500 mg tablet 500 mg PO BID PRN pain 7 day s #14 12/29/21 tabs prednisone 20 mg tablet 40 mg (2 x 20 mg) PO DAILY 5 days 12/29/21 #10 tabs oseltamivir 75 mg capsule (Tamiflu) 75 mg PO Q12H 5 da ys #10 caps 03/28/22 ibuprofen 600 mg tablet 600 mg PO Q6H PRN pain #30 t abs 03/18/23 ibuprofen 600 mg tablet 600 mg PO Q6H PRN pain #30 t abs 04/09/23 ibuprofen 200 mg tablet 400 mg (2 x 200 mg) PO Q8H P RN 08/16/23 pain #30 tabs cyclobenzaprine 5 mg tablet 5 mg PO Q8H #7 tabs lidocaine 5 % topical patch 1 patch topical DAILY #15 ea 05/14/24 (Lidoderm) colchicine 0.6 mg capsule See Rx Instructions .Route 1 05/09/24 .COMPLEX #23 caps prednisone 20 mg tablet See Rx Instructions .Route 1 05/09/24 .COMPLEX #18 tabs Allergies Allergy/AdvReac Type Severity Reaction Status Date / Time amoxicillin (AMOXICILLIN) Allergy Severe ANAPHYLAXIS Verified 03/09/25 08:30 Penicillins Allergy Severe HIVES Verified 03/09/25 08:30 Review of Systems Review of Systems: as per HPI Yes all other systems are reviewed and are negative Constitutional: Constitutional: Reports as per HPI [facility] Past Medical History Medical History No known health problems Social History Social History Alcohol intake: unknown Advance Directives: No Advance Directives Information Provided: Yes Current occupational status: employed Current occupation: [employer] Physical Exam ED Vital Signs: Vital Signs - 24 hr 03/09/25 08:25 03/09/25 11:48 Temperature 96.9 F 97.7 F Pulse Rate 105 H 85 Respiratory Rate 20 20 Blood Pressure 128/78 142/92 H Pulse Oximetry 96 97 Oxygen Delivery Method Room Air Room Air BMI result Body Mass Index 42.0 Vital signs have been reviewed and appear to be correct. Blood pressure normal. Heart rate normal. Respiratory rate normal. Temperature normal. Oxygen saturation normal. Const General: cooperative, healthy appearing and no acute distress Orientation/consciousness: oriented to person, oriented to place, oriented to time and patient oriented x3 Limitations: no limitations [facility] Head: Yes normocephalic and Yes atraumatic Ears: external ears normal General nose exam: Normal external nose present Face and sinus: Yes face symmetric Mouth: oropharynx normal and moist mucous membranes Throat: Yes uvula midline Eyes Pupils: Equal, round and reactive pupils present Neck Neck: Yes normal visual inspection and Yes supple Resp Effort & Inspection: normal respiratory effort and able to speak in complete sentences Auscultation: clear to auscultation bilaterally Cardio Rate: regular rate Rhythm: regular rhythm Heart sounds: S1 normal heart sound present and S2 normal heart sound present GI Palpation (GI): Soft to palpation and nontender Auscultation: normoactive bowel sounds General: Yes no CVA tenderness Back/Spine/Pelvis Back: no CVA tenderness Skin General skin exam: elasticity normal and turgor normal Neuro General: oriented to person, oriented to place, oriented to time, patient oriented x3, moves all extremities, no focal motor deficits and CN's II-XI intact bilaterally Cranial nerves: Yes Equal, round and reactive pupils present Cognition (Neuro): normal cognition Extrem General: Yes full ROM, Yes no pedal edema and Yes no calf tenderness Right lower extremity: ankle Details: tenderness Location: of the medial malleolus, swelling Details: diffusely, normal ROM and other (erythema) Psych Mental Status: mental status grossly normal Affect: normal affect Thought process: Normal thought process present Medical Decision Making Medical Decision Making [facility] Narrative: patient is a 34-year-old male presenting to the emergency department with complaint of right ankle pain and swelling for the past few weeks. On exam patient is awake, A+Ox3, VS WNL, afebrile, normal neurological exam without focal deficits, physical exam findings as above. Given reported symptoms and physical exam findings, initial differential includes but is not limited to right ankle strain, sprain, acute gout flare. unlikely fractures patient denies traumatic injury. X-ray Right ankle notable for mild diffuse edema. My interpretation is in agreement with the radiologist's interpretation. Based on HPI and physical exam findings, I feel symptoms likely due to acute gout flare, will treat with colchicine and prednisone. will also refer to orthopedics if symptoms do not improve with treatment for gout. Patient requesting crutches. Patient provided with crutches and crutch teaching. Return precautions discussed. Patient verbalized understanding of and agreement with plan. Differential Diagnosis Differential Diagnoses: The differential diagnosis associated with the presentation includes as per [facility] Admission/Observation Consideration of admission/observation: Escalation of care including admission/observation considered Patient would have been admitted to the hospital and transferred to appropriate facility had their clinical presentation warranted hospital admission. Independent Interpretation I performed an independent interpretation of an: Plain X-Ray Interpretation: No acute fracture of right ankle on xray Radiology Impression Discussion of test interpretation with radiology: I have reviewed the radiologist's reading. Radiologist Impression: 3 view right ankle Comparison: CR/SR - XR ANKLE 3 OR MORE VIEWS LEFT - 02/09/24 08:07 EDT CR/SR - XR ANKLE 3 OR MORE VIEWS RIGHT - 08/16/23 09:34 EDT Findings: Soft tissue swelling is demonstrated throughout the ankle. No fracture or dislocation. No significant loss of joint space, osteophytes, or erosions. Possible small ankle effusion. No radiopaque foreign body. IMPRESSION: Soft tissue swelling with possible small ankle effusion. No fracture or dislocation. Independent Historian Clinical information obtained from an independent historian. History obtained from or confirmed by: Parent External Record Review External record reviewed: Inpatient record, Office record and Outpatient record Prescription Management I considered prescription management with: Pain Medication and Other Discharge Plan Discharge Clinical Impression: Acute gout of ankle Patient Disposition: Home, Self-Care Instructions: Low Purine Diet (ED), Gout (ED), Crutch Instructions (ED) Additional Instructions: You were evaluated in the emergency department today for right ankle pain and swelling. You are being treated for gout, take all medications as prescribed. If your symptoms do not improve, we recommend that you follow up with o rthopedics. Keep your ankle elevated while at rest. Return to the ED if you experience increased redness, swelling, fever, or any other new or concerning symptoms. What is Gout? Gout is a type of arthritis caused by a buildup of uric acid crystals in the joints, leading to sudden pain, swelling, and redness, most often in the big toe or other joints.[1][5] Managing a Gout Flare: * Take your prescribed medication as directed. Common medicines for gout flares include colchicine, nonsteroidal anti-inflammatory drugs (NSAIDs), or steroids. These help reduce pain and swelling.[2-4] * If you have been given colchicine, use the dose prescribed. Lower doses are as effective as higher doses and cause fewer side effects.[4][6] * Rest the affected joint and, if advised, apply ice to help with pain.[4] * Avoid starting or stopping any long-term gout medication (like allopurinol) during a flare unless your doctor tells you to.[4] Preventing Future Flares: * If you have frequent gout attacks, your doctor may recommend starting a urate- lowering medicine such as allopurinol. This helps lower uric acid levels and prevent future flares. Allopurinol is usually started at a low dose and increased slowly.[3-4][6] * Continue taking any anti-inflammatory medicine (like colchicine or NSAIDs) for 3?6 months after starting urate-lowering therapy to prevent new flares.[3-5] * Your doctor will check your uric acid levels regularly. The goal is to keep your uric acid below 6 mg/dL.[3-4][6] Lifestyle and Diet Tips: * Drink plenty of water. * Limit alcohol, especially beer and spirits, and avoid sugary drinks.[5-6] * Eat a balanced diet. Limit foods high in purines (like organ meats and shellfish). Enjoy vegetables and low-fat dairy products.[5] * Lose weight if you are overweight, as this can help lower uric acid.[5-6] * Identify and avoid foods that trigger your gout, if you notice any patterns. [6] Other Important Information: * Tell your doctor about all medicines you take, as some can affect uric acid levels. * Keep follow-up appointments for blood tests and medication adjustments. * If you have a new flare, start your prescribed flare medication as soon as symptoms begin (?pill in the pocket? approach).[6] * Seek medical attention if you have severe pain, swelling, fever, or if your symptoms do not improve. Remember: Gout is a chronic condition, but with proper treatment and lifestyle changes, flares can be managed and prevented. If you have questions or concerns, contact your healthcare provider. Prescriptions: New colchicine 0.6 mg capsule See Rx Instructions .ROUTE .COMPLEX Qty: 23 0RF Rx Instructions: 1.2mg (2 tabs) on day 1, then 0.6mg (1 tab) 24 hours after first dose, then 0.6mg (1 tab) BID for 10 days prednisone 20 mg tablet See Rx Instructions .Route .COMPLEX Qty: 18 0RF Rx Instructions: 60mg (3 tabs) x 3 days, then 40mg (2 tabs) x 3 days, then 20mg (1 tab) x 3 days No Action clotrimazole 1 % cream 1 appl topical BID 14 Days Qty: 45 0RF cephalexin 500 mg capsule 500 mg PO QID 7 Days Qty: 28 0RF naproxen 500 mg tablet 500 mg PO BID PRN (Reason: pain) 7 Days Qty: 14 0RF prednisone 20 mg tablet 40 mg PO DAILY 5 Days Qty: 10 0RF oseltamivir [Tamiflu] 75 mg capsule 75 mg PO Q12H 5 Days Qty: 10 0RF cephalexin 500 mg capsule 500 mg PO QID 7 Days Qty: 28 0RF naproxen 500 mg tablet 500 mg PO BID PRN (Reason: pain) Qty: 20 0RF ibuprofen 600 mg tablet 600 mg PO Q6H PRN (Reason: pain) Qty: 30 0RF ibuprofen 200 mg tablet 400 mg PO Q8H PRN (Reason: pain) Qty: 30 0RF ibuprofen 600 mg tablet 600 mg PO Q6H PRN (Reason: pain) Qty: 30 0RF lidocaine [Lidoderm] 5 % adhesive patch,medicated 1 patch topical DAILY Qty: 15 0RF Rx Instructions: leave on most painful area for up to 12 hrs cyclobenzaprine 5 mg tablet 5 mg PO Q8H Qty: 7 0RF Referrals: [facility] [place] [facility] [Provider Group] - 1 week Clinical Impression: Acute gout of ankle Stand Alone Forms: Work/School Release Print Language: Czech
[2025-03-09 11:48] VITALS: BP 142/92; PULSE 85; RESP 20; TEMP 36.5; O2SAT 97
[2025-03-09 12:34] VITALS: BP 142/92; PULSE 85; RESP 20; TEMP 36.5; O2SAT 97
== END 2025-03-09 12:35 | disposition home or self-care (01) ==
PROVIDERS: Emergency Provider Emergency Medicine Emergency Medical Services
DX: M10.9 Gout, unspecified (principal); M25.571 Pain in right ankle and joints of right foot; R60.0 Localized edema
CPT/HCPCS: 73610; 99283

== ENCOUNTER → 2025-03-09 08:35 | Outpatient (BNV) | payer SELFPAY | PROVIDERS: Emergency Provider Emergency Medicine Emergency Medical Services; Visit Provider Radiology Vascular & Interventional Radiology | DX: M79.89 Other specified soft tissue disorders (principal) | CPT/HCPCS: 73610 ==